=== PATIENT | male | born 1940 | race Caucasian/White ===

== ENCOUNTER 2017-09-21 23:14 | Observation (INO) ==
[2017-09-22 00:01] LABS: Basophils % 0.4 %; Eosinophils # 0.4 K/mcL (0.0-0.6); Eosinophils % 4.2 %; Hematocrit 38.9 % (37.5-50.1); Hemoglobin 12.8 g/dL (12.9-16.9); Immature Granulocytes % 1.3 % (0-4); Lymphocytes # 3.1 K/mcL (0.6-4.6); Lymphocytes % 35.2 %; Mean Corpuscular HGB Conc 32.9 g/dL (31.6-35.5); Mean Corpuscular Hemoglobin 26.9 pg (28.0-33.3); Mean Corpuscular Volume 81.7 fL (83.0-100.0); Mean Platelet Volume 11.3 fL (9.4-12.4); Monocytes # 0.8 K/mcL (0.0-1.3); Monocytes % 9.1 %; Neutrophils # 4.4 K/mcL (1.6-8.9); Platelet Count 226 K/mcL (140-400); Red Blood Count 4.76 M/mcL (4.19-5.50); Red Cell Distribution Width 13.4 % (11.5-14.5); Segmented Neutrophils % 49.8 %
[2017-09-22 00:23] LABS: Calcium 8.7 mg/dL (8.6-10.3); Potassium 3.9 mEq/L (3.5-5.1)
--- NOTE | 2017-09-22 01:22 | Emergency Department Note ---
Disposition Clinical Impression: Elevated serum creatinine, Pre-syncope Dyspnea Qualifiers: Dyspnea type: unspecified Qualified Code(s): R06.00 - Dyspnea, unspecified Disposition: Admitted As Inpatient Condition: Good General Adult HPI - General Chief complaint: ED Shortness of Breath/Dyspnea Stated complaint: NAJMA Time Seen by Provider: 09/22/17 00:42 Source: patient, family Limitations: no limitations Nursing Notes Reviewed: Yes Vital Signs Reviewed: Yes - History of Present Illness HPI Narrative: 77 y/o male w/ a hx of HTN, HLD, prostate cancer, colon cancer, and BPH presents with acute onset of pre-syncope with lightheadedness, dyspnea, diaphoresis, and nausea at 10pm. It lasted approximately 2 hours and has resolved. He denies chest painHe reports having an increase in frequency of these episodes over the last 2 weeks. He has not sought medical care before for these episodes. He has no cardiac hx. No hx of heart cath, CABG, or stents. No hx of DVT/PE. Not on blood thinners. Pain Scale: 0 Consistency: now resolved Improves with: nothing Worsens with: nothing Associated symptoms: Reports: denies other symptoms Treatments Prior to Arrival: none - Related Data Allergies Allergy/AdvReac Type Severity Reaction Status Date / Time No Known Allergies Allergy Verified 09/21/17 23:21 All systems ED: reviewed and negative except as stated. Constitutional: Denies: fever Eyes: Denies: vision change Cardiovascular: Denies: chest pain Respiratory: Reports: dyspnea. Denies: cough Gastrointestinal: Denies: abdominal pain, nausea, vomiting Integumentary: Denies: rash Past Medical History - Past Medical History Medical history: Reports: cancer, COPD, diabetes, hyperlipidemia, hypertension - Social History Smoking Status: Former smoker Smokeless Tobacco Status: No Alcohol use: Reports: none Drug use: Reports: none Physical Exam - General Limitations: no limitations General appearance: alert - Head Head exam: atraumatic - Eye Eye exam: Present: normal appearance, PERRL - ENT ENT exam: normal exam, normal oropharynx - Neck Neck exam: Present: normal inspection - Chest Chest inspection: Present: normal inspection - Respiratory Respiratory exam: Present: normal lung sounds bilaterally. Absent: respiratory distress - Cardiovascular Cardiovascular exam: Present: regular rate, normal rhythm - Abdominal Exam Abdominal exam: Present: soft, Non-Tender - Extremities Exam Extremities exam: Present: normal inspection - Neurological Exam Neurological exam: Present: alert, oriented X3 - Psychiatric Psychiatric exam: Present: normal affect, normal mood - Skin Skin exam: Present: warm, dry Course Course Narrative: Negative D-dimer. Creatinine is elevated, however unclear if this is new. He reports no difficulty with urination and no prior kidney issues. EKG is NSR w/ o ST deviation. Troponin is negative. Will admit for pre-syncope associated w / dyspnea and diaphoresis. Will need to rule out arrhythmia. Accepted by Partha. Vital Signs Temperature 97.9 F 09/21/17 23:21 Pulse Rate 71 09/21/17 23:21 Respiratory Rate 18 09/21/17 23:21 Blood Pressure 164/88 09/21/17 23:21 O2 Sat by Pulse Oximetry 97 09/21/17 23:21 Temperature 97.9 F 09/21/17 23:21 Pulse Rate 71 09/21/17 23:21 Respiratory Rate 18 09/22/17 04:10 Blood Pressure 151/91 09/22/17 04:10 O2 Sat by Pulse Oximetry 97 09/21/17 23:21 Oxygen Delivery Oxygen Delivery Room Air Medical Decision Making - Medical Records Medical records reviewed: Yes I reviewed the patient's medical records. - Lab Data Lab results reviewed: Yes I reviewed the patient's lab results. Result diagrams: 09/21/17 23:52 09/21/17 23:52 Lab Results 09/21/17 09/21/17 09/21/17 Range/Units 23:52 23:52 23:52 WBC 8.9 (4.3-11.1) K/mcL RBC 4.76 (4.19-5.50) M/mcL Hgb 12.8 L (12.9-16.9) g/dL Hct 38.9 (37.5-50.1) % MCV 81.7 L (83.0-100.0) fL MCH 26.9 L (28.0-33.3) pg MCHC 32.9 (31.6-35.5) g/dL RDW 13.4 (11.5-14.5) % Plt Count 226 (140-400) K/mcL MPV 11.3 (9.4-12.4) fL Immature Gran % 1.3 (0-4) % Seg Neutrophils % 49.8 % Lymphocytes % 35.2 % Monocytes % 9.1 % Eosinophils % 4.2 % Basophils % 0.4 % Neutrophils # 4.4 (1.6-8.9) K/mcL Lymphocytes # 3.1 (0.6-4.6) K/mcL Monocytes # 0.8 (0.0-1.3) K/mcL Eosinophils # 0.4 (0.0-0.6) K/mcL Basophils # 0.0 (0.0-0.2) K/mcL PT (9.4-12.1) Seconds INR APTT (26.0-36.0) Seconds D-Dimer (0-500) ng/mLFEU Sodium 133 L (136-145) mEq/L Potassium 3.9 (3.5-5.1) mEq/L Chloride 100 (98-107) mEq/L Carbon Dioxide 23 (23-29) mEq/L BUN 25 H (8-23) mg/dL Creatinine 1.88 H (0.70-1.30) mg/dL Est GFR ( Amer) 42 L (> 60) Est GFR (Non-Af Amer) 35 L (> 60) BUN/Creatinine Ratio 13 (6-26) Glucose 233 H (70-105) mg/dL Calculated Osmolality 288 (280-300) Calcium 8.7 (8.6-10.3) mg/dL Troponin I < 0.03 (< 0.04) ng/mL B-Natriuretic Peptide (Less than 100) pg/mL 09/21/17 09/22/17 09/22/17 Range/Units 23:52 01:31 01:31 WBC (4.3-11.1) K/mcL RBC (4.19-5.50) M/mcL Hgb (12.9-16.9) g/dL Hct (37.5-50.1) % MCV (83.0-100.0) fL MCH (28.0-33.3) pg MCHC (31.6-35.5) g/dL RDW (11.5-14.5) % Plt Count (140-400) K/mcL MPV (9.4-12.4) fL Immature Gran % (0-4) % Seg Neutrophils % % Lymphocytes % % Monocytes % % Eosinophils % % Basophils % % Neutrophils # (1.6-8.9) K/mcL Lymphocytes # (0.6-4.6) K/mcL Monocytes # (0.0-1.3) K/mcL Eosinophils # (0.0-0.6) K/mcL Basophils # (0.0-0.2) K/mcL PT 11.0 (9.4-12.1) Seconds INR 1.0 APTT 29.3 (26.0-36.0) Seconds D-Dimer 477 (0-500) ng/mLFEU Sodium (136-145) mEq/L Potassium (3.5-5.1) mEq/L Chloride (98-107) mEq/L Carbon Dioxide (23-29) mEq/L BUN (8-23) mg/dL Creatinine (0.70-1.30) mg/dL Est GFR ( Amer) (> 60) Est GFR (Non-Af Amer) (> 60) BUN/Creatinine Ratio (6-26) Glucose (70-105) mg/dL Calculated Osmolality (280-300) Calcium (8.6-10.3) mg/dL Troponin I (< 0.04) ng/mL B-Natriuretic Peptide 26 (Less than 100) pg/mL - Radiology Data Radiology results reviewed: Yes I reviewed the patient's radiology results. - EKG Data EKG #1 EKG attestation: Yes I reviewed and interpreted this EKG. EKG shows normal: sinus rhythm Rate: normal Rhythm: torsades When compared to previous EKG there are: previous EKG unavailable Interpretation: nonspecific ST-T wave changes Attestation Statement - Attestation Attestation: I, Lázaro Chawla, examined this patient and my medical decision-making was reviewed with the PEDIATRIC GENETICIST/PA/Advanced Practice Nurse/Resident Physician. I agree with the documented findings, disposition and treatment plan as described except to the extent set forth below. 77-year-old male presents emergency Department with concerns of increased shortness of breath. Patient states symptoms started within the past 12 hours prior to arrival. Patient states he felt generalized malaise throughout the day however he developed the shortness of breath within the past few hours. Patient denies near syncopal episode. Denies chest pain. Patient has a history of cardiac disease. D-dimer negative. Chest x-ray does not show evidence of acute infiltrate. Patient be admitted to hospital for further care and evaluation. Initial EKG showed normal sinus rhythm with a rate of 72 without evidence of STEMI.
[2017-09-22 01:49] LABS: Activated Partial Thrombo Time 29.3 Seconds (26.0-36.0)
[2017-09-22] MEDS ORDERED: Ondansetron ODT 4 MG TAB.RAPDIS SL PRN (04:25)
[2017-09-22] MEDS ORDERED: Naloxone 0.4 MG/ML INJ IVP PRN (04:25)
[2017-09-22] MEDS ORDERED: *HR* Dextrose 50 % in Water (Syg) 50 ML SYRINGE IVP PRN (04:52)
[2017-09-22] MEDS ORDERED: Dextrose Gel 15 GM/37.5 ML TUBE PO PRN ×2 (04:52)
[2017-09-22] MEDS ORDERED: D5% in Water 1,000 ML IVC PRN (04:52)
--- NOTE | 2017-09-22 04:53 | Internal Med History&Physical ---
<Larry Valdes - Last Filed: 09/22/17 04:45> Date of Encounter: 09/22/17 Time of Encounter: 04:00 Assessment and Plan (1) Pre-syncope Current visit: Yes Status: Acute Ordered echocardiogram to evaluate for aortic stenosis Ordered b/l carotid duplex to evaluate for carotid stenosis Ordered orthostatics EKG pending (2) HTN (hypertension) Current visit: Yes Status: Acute Elevated at 164/88 Qualifiers: Hypertension type: essential hypertension Qualified Code(s): I10 - Essential (primary) hypertension (3) HLD (hyperlipidemia) Current visit: Yes Status: Acute Unknown control Ordered lipid cascade Qualifiers: Hyperlipidemia type: unspecified Qualified Code(s): E78.5 - Hyperlipidemia , unspecified (4) Diabetes mellitus, type II Current visit: Yes Status: Acute Unknown control Will check HgbA1C Qualifiers: Diabetes mellitus complication status: with unspecified complications Diabetes mellitus ad terminal makeup operator insulin use: unspecified ad terminal makeup operator insulin use status Qualified Code(s): E11.8 - Type 2 diabetes mellitus with unspecified complications (5) Elevated serum creatinine Current visit: Yes Status: Acute Unknown baseline Administering IVF @125 ml/hr Will monitor (6) DVT prophylaxis Current visit: Yes Status: Acute heparin subq q12h Internal Medicine - H&P: HPI Chief complaint: pre-syncope Admitted From: Home Plans for Post Hospital Care: Home History of present illness: Mr. Huddleston is a 77 year old male who presented from home following a 2 hour episode of lightheadedness, dyspnea, nausea, a feeling of beng overheated, and cough. He was laying in bed when it started. This is the worst episode he has experienced, but the first episode occurred as long as 2 months ago. He admits to occasional lower extremity edema without apparent relation to his symptoms. He denies CP, vomiting. Past Med Surg Social Fam HX - Past Medical History Medical history: cancer, COPD, diabetes, hyperlipidemia, hypertension - Social History Smoking Status: Former smoker Smokeless Tobacco Status: No Alcohol use: none Drug use: none Internal Medicine - H&P: Meds 3 Allergy/AdvReac Type Severity Reaction Status Date / Time No Known Allergies Allergy Verified 09/21/17 23:21 All Systems PM: A 10-system review of systems was performed and is negative for pertinent findings except as documented above in the HPI. Review of systems: as per HPI - Constitutional Vitals: Temp Pulse Resp BP Pulse Ox 97.9 F 71 18 151/91 97 09/21/17 23:21 09/21/17 23:21 09/22/17 04:10 09/22/17 04:10 09/21/17 23:21 General appearance: Present: cooperative, A&O X 3, pleasant, answers questions appropriately - Head Head exam: Present: atraumatic, normal inspection, normocephalic - ENT ENT exam: Present: mucous membranes moist - Neck Neck exam general surgery: Present: trachea midline - Cardiovascular Cardiovascular exam: Present: RRR, +S1, +S2. Absent: systolic murmur Additional comments: No carotid bruits appreciated - GI/Abdominal GI/Abdominal exam: Present: soft, no peritoneal signs. Absent: tenderness - Extremities Exam Extremities exam: Absent: pedal edema - Psychiatric Psychiatric exam: Present: normal affect, normal mood. Absent: agitated, anxious - Skin Skin exam: Present: dry, warm Internal Med - H&P Results - Labs CBC & Chem 7: 09/21/17 23:52 09/21/17 23:52 <Lorna Rain - Last Filed: 09/22/17 05:20> Date of Encounter: 09/22/17 Time of Encounter: 04:45 Internal Medicine - H&P: [facility] History of present illness: Mr. Huddleston is a 77 year old male All Systems PM: A 10-system review of systems was performed and is negative for pertinent findings except as documented above in the HPI. - Constitutional Vitals: Temp Pulse Resp BP Pulse Ox 97.9 F 71 18 151/91 97 09/21/17 23:21 09/21/17 23:21 09/22/17 04:10 09/22/17 04:10 09/21/17 23:21 Internal Med - H&P Results - Labs CBC & Chem 7: 09/21/17 23:52 09/21/17 23:52 - Attending Attestation I examined this patient and my medical decision-making was reviewed with the Resident Physician, Larry Valdes. I agree with the documented findings, disposition and treatment plan as described except to the extent set forth below. 77-year-old male patient with history of essential hypertension, diabetes mellitus type 2 presented to the ER with complaints of dizziness and lightheadedness. This occurred when he was bending down to tie a leash on his dog. His symptoms continued for over for the next couple of hours and he came to the ER as a result. Patient says he does have similar kinds of episodes that last for a brief period when his blood sugars are low but he had checked his blood sugars at home and his blood sugar was in the 180s. He denies any focal weakness or numbness. No loss of consciousness. No chest pain or palpitations. Patient has been having increased cough over the past few days. No sputum production. No current chest pain. He does report occasional intermittent left and right-sided chest wall pain. No fever or chills reported. On examination, patient is awake and alert. In no acute distress. Heart sounds are normal to examination. Breath sounds are also normal. Mild pedal edema present bilaterally. Lab work shows elevated creatinine and blood sugars. Presyncope: Uncertain etiology. Check orthostatics. Place on telemetry. 2-D echocardiogram and carotid Dopplers. Diabetes mellitus type 2: Check A1c. Before meals at bedtime blood sugars. Place patient on diabetic diet. Essential hypertension: Monitor blood pressure. Resume home medications as tolerated. Cough: We will check for influenza with respiratory infection panel. Acute kidney injury: Unknown baseline. Will gently hydrate. Recheck renal function.
[2017-09-22] MEDS: 0.9 % Sodium Chloride 1,000 ML IVC SCH ×2 (05:30→17:18)
[2017-09-22 05:32] LABS: Hemoglobin A1C 7.4 %
[2017-09-22 06:01] LABS: Calcium 9.2 mg/dL (8.6-10.3); Chol/HDL Ratio 4.8 (0-4.9); Potassium 4.1 mEq/L (3.5-5.1)
[2017-09-22] MEDS: *HR* Heparin 5,000 UNIT/ML VIAL SQ SCH ×2 (08:01→17:20)
[2017-09-22] MEDS: Insulin LISPRO 300 UNITS/3 ML VIAL SQ SCH ×3 (08:02→17:20)
--- NOTE | 2017-09-22 08:17 | Electrocardiograph Report ---
[place] [id number] Test Date: 2017-09-21 Pat Name: Tavares Huddleston Department: 102 Room: 2NE28 Gender: M [employer]ine [employer] Field Specialist: Ekp : [id number] Requested By: Lázaro Chawla Order Number: [id number] Reading MD: Elizabeth Rodrigues Measurements Intervals [place] Rate: 72 P: 39 [place]: 204 QRS: -24 QRSD: 96 T: 5 QT: 394 QTc: 418 Interpretive Statements SINUS RHYTHM BORDERLINE LEFT AXIS DEVIATION [QRS AXIS < -20] MODERATE VOLTAGE CRITERIA FOR LVH, CONSIDER NORMAL VARIANT [MEETS CRITERIA IN ONE OF: R(aVL), S(V1), R(V5), R(V5/V6)+S(V1)] Electronically Signed On 09-22-2017 8:15:48 EST by Elizabeth Rodrigues
[2017-09-22 10:21] LABS: Adenovirus Not Detected (Not Detect); Bordetella Pertussis Not Detected (Not Detect); Chlamydophila pneumoniae Not Detected (Not Detect); Coronavirus 229E Not Detected (Not Detect); Coronavirus HKU1 Not Detected (Not Detect); Coronavirus NL63 Not Detected (Not Detect); Coronavirus OC43 Not Detected (Not Detect); Human Metapneumovirus Not Detected (Not Detect); Human Rhinovirus/Enterovirus Not Detected (Not Detect); Influenza A Subtype 2009 H1 Not Detected (Not Detect); Influenza A Untypeable Not Detected (Not Detect); Influenza B Not Detected (Not Detect); Mycoplasma pneumoniae Not Detected (Not Detect); Parainfluenza Virus 1 Not Detected (Not Detect); Parainfluenza Virus 2 Not Detected (Not Detect); Parainfluenza Virus 3 Not Detected (Not Detect); Parainfluenza Virus 4 Not Detected (Not Detect); Respiratory Syncytial Virus Not Detected (Not Detect)
--- NOTE | 2017-09-22 17:26 | Event Note ---
<GermainesupaChung mendez - Last Filed: 09/22/17 17:18> Date of Encounter: 09/22/17 Time of Encounter: 17:18 Patient seen and examined this morning at bedside. He states that he experienced dizziness and nausea after bending down to put a leash on his dog yesterday. He reports no further symptoms. He has experienced this in the past. Denies any current needs at this time however is getting frustrated at the time it is taking to run tests. Physical exam Gen.: Vitals noted. No acute distress. AAOx3 HEENT: PERRL/EOMI, oropharynx clear, Normocephalic, atraumatic, MMM Cardiac: RRR, no murmur, +S1/S2 Pulmonary: CTA bilaterally, no wheezes, rales or rhonchi, equal chest expansion Abdomen: soft, nontender, BS noted, no guarding Extremities: no BLE edema, nontender calf, no cyanosis or clubbing Neuro: A&Ox3, moves all extremities, no focal deficits Psych: Appropriate mood and behavior A/P 1. Pre syncope - Likely related to dehydration and vasovagal episode. - Work up thus far has been negative including labs, EKG, - Orthostatics, echo, carotid US pending - Will likely stay until tomorrow for testing to come back. 2. HTN - Most recent BP 139/107 - Meds reconciled, continue home meds - Hydralazine PRN 3. DM - Most recent BS of 117 - SSI medium - A1c of 7.4% 4. Elevated serum Cr. - Unknown baseline - Getting IVF at 125/hr 5. DVT prophylaxis - heparin sq q 12hr <Sonu Lilly - Last Filed: 09/22/17 18:17> Date of Encounter: 09/22/17 Mr Huddleston was placed in observation earlier today for syncope. Work up in progress. Agree with above assessment and plan.
[2017-09-22] MEDS ORDERED: Furosemide 40 MG TABLET PO SCH (17:30)
[2017-09-22 19:15] VITALS: BP 177/87
[2017-09-22] MEDS ORDERED: Insulin LISPRO 300 UNITS/3 ML VIAL SQ SCH (21:00)
[2017-09-22] MEDS ORDERED: Gabapentin 300 MG CAPSULE PO SCH (21:00)
--- NOTE | 2017-09-22 23:04 | Event Note ---
Date of Encounter: 09/22/17 Time of Encounter: 22:00 I was called to the bedside by the nurse because this patient was apparently tachycardic and hypertensive. The patient was concerned that he was having a reaction to a shot of insulin that he just received feeling hot and agitated. This apparently happened earlier in the day when he received an insulin shot as well. Blood glucose was taken immediately and the glucose was demonstrated to be in the 190s. I did notice while there that the patient had a heart rate in the 120s and a blood pressure of about 177/95. I spoke to the patient about possible therapeutic options for this, however he became increasingly agitated and said that he would like to leave. Ensure that the patient was alert and oriented 3 and competent to make that decision. I explained to the patient the risks of leaving including injury, loss of consciousness or . I also explained to the patient that by saying I would be able to treat his blood pressure, tachycardia, anxiety and give him something to help him sleep a little bit better than he did the previous night. 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 Because the patient was oriented and competent to make this decision and I prepared AGAINST MEDICAL ADVICE paperwork which the patient signed and did leave. I did instruct the patient to return any time if he felt that he was experiencing chest pains, palpitations, or just felt that maybe he required treatment. Patient expressed understanding. Nurse and GIRLS SWIMMING COACH were present for the entirety of conversation, as were two family members of the patient who attempted to convince him to stay unsuccessfully.
--- NOTE | 2017-09-23 08:13 | Discharge Summary ---
<Chung Dyson - Last Filed: 09/23/17 08:13> Date of Encounter: 09/23/17 Time of Encounter: 08:13 - Discharge Medications Home Medications: Enalapril Maleate [Vasotec] 20 mg PO DAILY 09/22/17 [History] Finasteride [Proscar] 5 mg PO DAILY 09/22/17 [History] Furosemide [Lasix] 40 mg PO BID 09/22/17 [History] Gabapentin [Neurontin] 300 mg PO BID 09/22/17 [History] Glimepiride [Amaryl] 2 mg PO DAILY 09/22/17 [History] Insulin DETEMIR [Levemir Flextouch] 60 units SQ BID 09/22/17 [History] Meclizine HCl [Verticalm] 25 mg PO DAILY 09/22/17 [History] Omeprazole [PriLOSEC] 20 mg PO DAILY 09/22/17 [History] Polyethylene Glycol 3350 [MiraLAX] 17 gm PO DAILY 09/22/17 [History] Simvastatin [Zocor] 20 mg PO HS 09/22/17 [History] SitaGLIPtin [Januvia] 100 mg PO DAILY 09/22/17 [History] Tamsulosin [Flomax] 0.4 mg PO DAILY 09/22/17 [History] metFORMIN [Glucophage] 500 mg PO BIDWM 09/22/17 [History] Allergies/Adverse Reactions: 3 Allergy/AdvReac Type Severity Reaction Status Date / Time No Known Allergies Allergy Verified 09/21/17 23:21 Procedures/tests Complete & Pending: Procedures Performed prior 72 hours Category Date Time Status EV carotid duplex imaging BI Routine Y 09/22/17 04:25 Completed EV echocardiogram Routine Y 09/22/17 04:23 Completed Date of admission: 09/22/17 03:29 Primary care physician: Sulaiman Wood - Patient Status Disposition: Left Against Medical Advice Condition: Good - Discharge Instructions Instructions: Chronic Hypertension (DC) Follow Up With: Sulaiman Wood DO [Primary Care Provider] - Hospital course: Mr. Huddleston is a 77 year old male - Time Spent with Patient Total time spent providing and/or coordinating discharge services: - Constitutional Vitals: Temp Pulse Resp BP Pulse Ox 97.6 F 98 19 177/87 96 09/22/17 19:07 09/22/17 19:07 09/22/17 19:07 09/22/17 19:07 09/22/17 19:07 General appearance: Present: cooperative, A&O X 3, pleasant, answers questions appropriately <Sonu Lilly - Last Filed: 09/23/17 14:31> Date of Encounter: 09/23/17 Procedures/tests Complete & Pending: Procedures Performed prior 72 hours Category Date Time Status EV carotid duplex imaging BI Routine Y 09/22/17 04:25 Completed EV echocardiogram Routine Y 09/22/17 04:23 Completed Date of admission: 09/22/17 03:29 Primary care physician: Sulaiman Wood [facility] course: Mr. Huddleston is a 77 year old male - Time Spent with Patient Total time spent providing and/or coordinating discharge services: - Constitutional Vitals: Temp Pulse Resp BP Pulse Ox 97.6 F 98 19 177/87 96 09/22/17 19:07 09/22/17 19:07 09/22/17 19:07 09/22/17 19:07 09/22/17 19:07 - Attending Attestation I examined this patient and my medical decision-making was reviewed with the Resident Physician on 09/22/17. I agree with the documented findings, disposition and treatment plan as described except to the extent set forth below. Mr Huddleston was in observation for syncope. He left AMA last evening.
[2017-09-23] MEDS ORDERED: Finasteride 5 MG TABLET PO SCH (09:00)
[2017-09-23] MEDS ORDERED: Lisinopril 20 MG TABLET PO SCH (09:00)
== END 2017-09-22 21:53 | disposition left against medical advice (07) ==
LOC: 2NENU 23:14 → EMEROO 23:14 → 2NENU 09-22 04:16
PROVIDERS: ADMIT Internal Medicine; ATTEND Internal Medicine

== ENCOUNTER 2020-12-26 15:19 | Observation (INO) ==
[2020-12-26] MEDS ORDERED: Td (TENIVAC) Vaccine 0.5 ML VIAL IM ONE (15:28)
[2020-12-26] MEDS ORDERED: Tdap (Boostrix) Vaccine 0.5 ML SYRINGE IM ONE (15:38)
[2020-12-26] MEDS ORDERED: *HR* Propofol 200 MG/20 ML VIAL IVP ONE ×2 (16:03→20:26)
[2020-12-26] MEDS ORDERED: 0.9 % Sodium Chloride 1,000 ML ONE (16:18)
[2020-12-26] MEDS ORDERED: Morphine Sulfate 2 MG/ML SYRINGE IVP ONE ×2 (16:46→18:12)
[2020-12-26 16:49] LABS: Basophils % 0.2 %; Eosinophils # 0.1 K/mcL (0.0-0.6); Eosinophils % 1.2 %; Hematocrit 34.2 % (37.5-50.1); Hemoglobin 11.1 g/dL (12.9-16.9); Immature Granulocytes % 1.1 % (0-4); Lymphocytes # 1.7 K/mcL (0.6-4.6); Lymphocytes % 15.2 %; Mean Corpuscular HGB Conc 32.5 g/dL (31.6-35.5); Mean Corpuscular Volume 83.2 fL (83.0-100.0); Mean Platelet Volume 11.3 fL (9.4-12.4); Monocytes % 8.9 %; Neutrophils # 8.4 K/mcL (1.6-8.9); Platelet Count 235 K/mcL (140-400); Red Blood Count 4.11 M/mcL (4.19-5.50); Red Cell Distribution Width 14.3 % (11.5-14.5); Segmented Neutrophils % 73.4 %; White Blood Count 11.4 K/mcL (4.3-11.1)
[2020-12-26 16:59] LABS: INR 1.1; Prothrombin Time 13.1 Seconds (9.4-12.1)
[2020-12-26 17:06] LABS: Calcium 8.4 mg/dL (8.6-10.3); Potassium 4.6 mEq/L (3.5-5.1)
[2020-12-26] MEDS ORDERED: Melatonin 3 MG TABLET PO PRN (17:22)
[2020-12-26] MEDS ORDERED: Ondansetron 4 MG/2 ML VIAL IVP PRN (17:22)
[2020-12-26] MEDS ORDERED: Naloxone 0.4 MG/ML INJ IVP PRN (17:22)
[2020-12-26] MEDS ORDERED: *HR* Dextrose 50 % in Water (Vial) 50 ML VIAL IVP PRN (17:24)
[2020-12-26] MEDS ORDERED: *HR* HYDROmorphone 2 MG/ML SYRINGE IVP PRN (17:24)
[2020-12-26] MEDS ORDERED: Dextrose Gel 15 GM/37.5 ML TUBE PO PRN ×2 (17:24)
[2020-12-26] MEDS ORDERED: D5% in Water 1,000 ML IVC PRN (17:24)
[2020-12-26] MEDS ORDERED: Ringers Solution, Lactated 1,000 ML IVC SCH (17:30)
[2020-12-26] MEDS ORDERED: Ipratropium/Albuterol Neb 3 ML IH PRN (17:35)
[2020-12-26 19:02] LABS: Adenovirus Not Detected (Not Detect); Bordetella Pertussis Not Detected (Not Detect); Chlamydophila pneumoniae Not Detected (Not Detect); Coronavirus 229E Not Detected (Not Detect); Coronavirus HKU1 Not Detected (Not Detect); Coronavirus NL63 Not Detected (Not Detect); Coronavirus OC43 Not Detected (Not Detect); Human Metapneumovirus Not Detected (Not Detect); Human Rhinovirus/Enterovirus Not Detected (Not Detect); Influenza A Subtype 2009 H1 Not Detected (Not Detect); Influenza B Not Detected (Not Detect); Mycoplasma pneumoniae Not Detected (Not Detect); Parainfluenza Virus 1 Not Detected (Not Detect); Parainfluenza Virus 2 Not Detected (Not Detect); Parainfluenza Virus 3 Not Detected (Not Detect); Parainfluenza Virus 4 Not Detected (Not Detect); Respiratory Syncytial Virus Not Detected (Not Detect); SARS-CoV-2 Not Detected (Not Detect)
[2020-12-26] MEDS ORDERED: *HR* FentaNYL (PF) 100 MCG/2 ML VIAL ONE (20:26)
[2020-12-26] MEDS ORDERED: Lidocaine -MPF 2% 2 ML VIAL ONE (20:26)
[2020-12-26] MEDS ORDERED: Lidocaine 1% 20 ML MDV ONE (20:39)
[2020-12-26 20:42] LABS: Estimated Average Glucose 169 mg/dl; Hemoglobin A1C 7.5 %
[2020-12-26] MEDS ORDERED: *HR* HYDROmorphone PF 0.5 MG/0.5 ML SYRINGE IVP PRN (20:56)
[2020-12-26] MEDS ORDERED: *HR* OxyCODONE Immed Rel 5 MG TABLET PO PRN (20:56)
[2020-12-26] MEDS ORDERED: Gabapentin 300 MG CAPSULE PO SCH (21:00)
[2020-12-26] MEDS ORDERED: Furosemide 40 MG TABLET PO SCH (21:00)
[2020-12-26] MEDS ORDERED: Insulin DETEMIR 100 UNIT/ML X5UNITS SUBQ SCH (21:00)
[2020-12-26] MEDS ORDERED: *HR* Rocuronium Bromide 50 MG/5 ML VIAL ONE (21:07)
[2020-12-26] MEDS ORDERED: *HR* Succinylcholine 200 MG/10 ML VIAL IVP ONE (21:07)
[2020-12-26] MEDS ORDERED: *HR* HYDROMORPHONE 2 MG/ML VIAL ONE (21:30)
[2020-12-26] MEDS ORDERED: Ondansetron 4 MG/2 ML VIAL ONE (21:41)
[2020-12-26] MEDS ORDERED: EPHEDrine 50 MG/ML VIAL ONE (22:13)
[2020-12-26] MEDS ORDERED: *HR* Vasopressin 20 UNIT/ML VIAL ONE (22:21)
[2020-12-27] MEDS ORDERED: Ringers Solution, Lactated 1,000 ML IVC SCH (00:07)
[2020-12-27] MEDS ORDERED: Ondansetron 4 MG/2 ML VIAL IVP PRN (00:07)
[2020-12-27] MEDS ORDERED: *HR* HYDROmorphone 2 MG/ML SYRINGE IVP PRN (00:07)
[2020-12-27] MEDS ORDERED: Ipratropium/Albuterol Neb 3 ML IH PRN (00:07)
[2020-12-27] MEDS ORDERED: Naloxone 0.4 MG/ML INJ IVP PRN (00:07)
[2020-12-27] MEDS ORDERED: Melatonin 3 MG TABLET PO PRN (00:07)
[2020-12-27] MEDS ORDERED: *HR* Dextrose 50 % in Water (Vial) 50 ML VIAL IVP PRN (00:07)
[2020-12-27] MEDS ORDERED: Dextrose Gel 15 GM/37.5 ML TUBE PO PRN ×2 (00:07)
[2020-12-27] MEDS ORDERED: D5% in Water 1,000 ML IVC PRN (00:07)
[2020-12-27 01:26] LABS: Hematocrit 32.9 % (37.5-50.1); Hemoglobin 10.7 g/dL (12.9-16.9); Mean Corpuscular HGB Conc 32.5 g/dL (31.6-35.5); Mean Corpuscular Hemoglobin 27.8 pg (28.0-33.3); Mean Corpuscular Volume 85.5 fL (83.0-100.0); Mean Platelet Volume 11.2 fL (9.4-12.4); Platelet Count 190 K/mcL (140-400); Red Blood Count 3.85 M/mcL (4.19-5.50); Red Cell Distribution Width 14.3 % (11.5-14.5)
[2020-12-27 01:47] LABS: Calcium 8.2 mg/dL (8.6-10.3); Magnesium 2.2 mg/dL (1.6-2.6); Phosphorous 3.1 mg/dL (2.7-4.5); Potassium 4.4 mEq/L (3.5-5.1)
[2020-12-27 01:52] LABS: % Iron Saturation 13 % (20-55); Iron 48 mcg/dL (65-175); Transferrin 257 mg/dL (203-362)
[2020-12-27 02:07] LABS: Ferritin 23 ng/mL (20-250)
[2020-12-27 02:12] LABS: Folate 8.1 ng/mL (3.0-16.0)
[2020-12-27 07:05] VITALS: BP 128/74
[2020-12-27] MEDS ORDERED: Insulin LISPRO 300 UNITS/3 ML VIAL SUBQ SCH (07:30)
[2020-12-27] MEDS: Insulin LISPRO 300 UNITS/3 ML VIAL SUBQ SCH ×2 (07:42→11:51)
[2020-12-27] MEDS ORDERED: Furosemide 40 MG TABLET PO SCH (08:00)
[2020-12-27] MEDS: Calcium Gluconate 1gm/50mL 1 GM/50 ML BAG IVPB SCH ×2 (08:38→11:12)
[2020-12-27] MEDS ORDERED: atenoloL 50 MG TABLET PO SCH ×2 (09:00)
[2020-12-27] MEDS ORDERED: Sennosides 8.6 MG TABLET PO SCH ×2 (09:00)
[2020-12-27] MEDS ORDERED: Insulin DETEMIR 100 UNIT/ML X5UNITS SUBQ SCH ×2 (09:00→21:00)
[2020-12-27] MEDS ORDERED: Cholecalciferol (D-3) 1,000 UNIT (25MCG) TABLET PO SCH (09:00)
[2020-12-27] MEDS ORDERED: Aspirin Enteric Coated 81 MG Tablet PO SCH ×2 (09:00)
[2020-12-27] MEDS ORDERED: Cyanocobalamin (B-12) 1,000 MCG TABLET PO SCH (09:00)
[2020-12-27] MEDS ORDERED: Gabapentin 300 MG CAPSULE PO SCH (09:00)
[2020-12-27] MEDS ORDERED: PSYLLIUM HUSK 0.52 GM PO SCH (09:00)
[2020-12-27] MEDS ORDERED: Finasteride 5 MG TABLET PO SCH ×2 (09:00)
[2020-12-27] MEDS ORDERED: Iron Sucrose Complex 400 MG in 0.9 % Sodium Chloride 250 ML IVPB ONE (10:00)
[2020-12-27] MEDS ORDERED: *HR* Heparin 5,000 UNIT/ML VIAL SQ SCH (18:00)
== END 2020-12-27 12:50 | disposition home health service (06) ==
LOC: SUATTDRO → 3NENU 15:19 → EMEROOARM 15:19 → 3NENU 19:37
PROVIDERS: ADMIT Internal Medicine; ATTEND Internal Medicine

== ENCOUNTER 2021-04-08 16:37 | Inpatient (IN) ==
[2021-04-08] MEDS ORDERED: Ketorolac 15 MG/ML VIAL IM ONE (17:30)
[2021-04-08] MEDS ORDERED: Gadolinium Contrast Agent (WT Based) IV PRN (18:09)
[2021-04-08] MEDS ORDERED: Clindamycin 600 MG/50 ML 600 MG/50 ML IV.SOLN IVPB STA (18:13)
[2021-04-08] MEDS ORDERED: Piperacillin/Tazobactam 3.375 GM in 0.9 % Sodium Chloride Mini Bag 100 ML IVPB ONE (18:15)
[2021-04-08] MEDS ORDERED: Vancomycin 1,750 MG/517.5 ML IV.SOLN IVPB ONE (18:20)
[2021-04-08] MEDS ORDERED: GADOBUTROL 30 MMOL/30 ML VIAL IVP ONE (18:25)
[2021-04-08 18:40] LABS: Hematocrit 35.4 % (37.5-50.1); Red Cell Distribution Width 13.5 % (11.5-14.5)
[2021-04-08 18:41] LABS: Hemoglobin 11.9 g/dL (12.9-16.9); Mean Corpuscular HGB Conc 33.6 g/dL (31.6-35.5); Mean Corpuscular Hemoglobin 27.9 pg (28.0-33.3); Mean Corpuscular Volume 82.9 fL (83.0-100.0); Platelet Count 192 K/mcL (140-400); Red Blood Count 4.27 M/mcL (4.19-5.50)
[2021-04-08 18:43] LABS: White Blood Count 32.1 K/mcL (4.3-11.1)
[2021-04-08 18:48] LABS: INR 1.2; Prothrombin Time 13.5 Seconds (9.4-12.1)
[2021-04-08 18:48] LABS: POC Creatinine Result 1.65 mg/dL (0.70-1.30)
[2021-04-08 18:50] LABS: Activated Partial Thrombo Time 25.8 Seconds (26.0-36.0)
[2021-04-08 18:58] LABS: Alanine Aminotransferase 17 Units/L (7-52); Albumin 3.7 g/dL (3.5-5.7); Albumin/Globulin Ratio 1.3 (1.1-2.2); Alkaline Phosphatase 86 Units/L (34-104); Aspartate Amino Transferase 16 Units/L (13-39); BUN/Creatinine Ratio 12 (6-26); Bilirubin,Total 1.2 mg/dL (0.3-1.0); Blood Urea Nitrogen 18 mg/dL (8-23); C-Reactive Protein 57 mg/L (Less than 10); Calcium 8.7 mg/dL (8.6-10.3); Carbon Dioxide 22 mEq/L (23-29); Chloride 97 mEq/L (98-107); Creatine Kinase 109 Units/L (30-223); Globulin 2.8 g/dL (2.4-3.5); Glucose 240 mg/dL (70-105); Osmolality,Calculated 278 (280-300); Potassium 4.7 mEq/L (3.5-5.1); Sodium 129 mEq/L (136-145); Total Protein 6.5 g/dL (6.4-8.9); eGFR For African Americans 56 (> 60); eGFR For Non-African Americans 46 (> 60)
[2021-04-08 19:07] LABS: Anisocytosis 1+ (Not Present); Lymphocytes # 0.6 K/mcL (0.6-4.6); Neutrophils # 30.5 K/mcL (1.6-8.9); Platelet Estimate Normal (Normal)
[2021-04-08] MEDS ORDERED: 0.9 % Sodium Chloride 1,000 ML IVC ONE ×2 (20:07→20:12)
[2021-04-08] MEDS ORDERED: *HR* FentaNYL (PF) 100 MCG/2 ML VIAL IVP ONE (20:09)
[2021-04-08] MEDS ORDERED: Naloxone 0.4 MG/ML INJ IVP PRN (21:57)
[2021-04-08] MEDS ORDERED: Acetaminophen 325 MG TABLET PO PRN (21:57)
[2021-04-08] MEDS ORDERED: *HR* Dextrose 50 % in Water (Vial) 50 ML VIAL IVP PRN (22:03)
[2021-04-08] MEDS ORDERED: Dextrose Gel 15 GM/37.5 ML TUBE PO PRN ×2 (22:03)
[2021-04-08] MEDS ORDERED: D5% in Water 1,000 ML IVC PRN (22:03)
[2021-04-08] MEDS: Levalbuterol Neb 1.25 MG/3 ML IH SCH (22:04)
[2021-04-08] MEDS ORDERED: *HR* HYDROmorphone 2 MG TABLET PO ONE (22:06)
[2021-04-08] MEDS ORDERED: tiZANidine 4 MG TABLET PO PRN (22:06)
[2021-04-08] MEDS ORDERED: *HR* Metoprolol 5 MG/5 ML VIAL IVP ONE (22:31)
[2021-04-08 22:51] LABS: Troponin I < 0.03 ng/mL (< 0.04)
[2021-04-08 23:34] LABS: Adenovirus Not Detected (Not Detect); Coronavirus 229E Not Detected (Not Detect); Coronavirus HKU1 Not Detected (Not Detect); Coronavirus NL63 Not Detected (Not Detect); Coronavirus OC43 Not Detected (Not Detect); Human Metapneumovirus Not Detected (Not Detect); Human Rhinovirus/Enterovirus Not Detected (Not Detect); Influenza A Subtype 2009 H1 Not Detected (Not Detect); Influenza B Not Detected (Not Detect); Parainfluenza Virus 1 Not Detected (Not Detect); Parainfluenza Virus 2 Not Detected (Not Detect); Parainfluenza Virus 3 Not Detected (Not Detect); Parainfluenza Virus 4 Not Detected (Not Detect); Respiratory Syncytial Virus Not Detected (Not Detect); SARS-CoV-2 Not Detected (Not Detect)
[2021-04-08 23:35] LABS: Bordetella Pertussis Not Detected (Not Detect); Chlamydophila pneumoniae Not Detected (Not Detect); Mycoplasma pneumoniae Not Detected (Not Detect)
[2021-04-09 00:44] LABS: Hematocrit 33.4 % (37.5-50.1); Hemoglobin 11.1 g/dL (12.9-16.9); Mean Corpuscular HGB Conc 33.2 g/dL (31.6-35.5); Mean Corpuscular Hemoglobin 27.7 pg (28.0-33.3); Mean Corpuscular Volume 83.3 fL (83.0-100.0); Mean Platelet Volume 11.3 fL (9.4-12.4); Platelet Count 169 K/mcL (140-400); Red Blood Count 4.01 M/mcL (4.19-5.50); Red Cell Distribution Width 13.7 % (11.5-14.5); White Blood Count 27.9 K/mcL (4.3-11.1)
[2021-04-09 00:49] LABS: INR 1.2
[2021-04-09 00:52] LABS: Calcium 8.1 mg/dL (8.6-10.3); Chol/HDL Ratio 3.7 (0-4.9); Magnesium 1.4 mg/dL (1.6-2.6); Potassium 5.1 mEq/L (3.5-5.1)
[2021-04-09 00:53] LABS: Iron 13 mcg/dL (65-175)
[2021-04-09 01:09] LABS: Estimated Average Glucose 189 mg/dl; Hemoglobin A1C 8.2 %
[2021-04-09 01:12] LABS: Ferritin 60 ng/mL (20-250)
[2021-04-09 01:18] LABS: Folate 7.3 ng/mL (3.0-16.0)
[2021-04-09] MEDS: Insulin LISPRO 300 UNITS/3 ML VIAL SUBQ SCH ×4 (01:26→20:49)
[2021-04-09 03:04] LABS: % Iron Saturation 4 % (20-55); Transferrin 231 mg/dL (203-362)
[2021-04-09] MEDS ORDERED: Magnesium Sulfate 1 GM/102 ML PIGGYBACK IVPB ONE (04:13)
[2021-04-09] MEDS ORDERED: Calcium Gluconate 1gm/50mL 1 GM/50 ML BAG IVPB ONE (04:14)
[2021-04-09] MEDS ORDERED: 0.9 % Sodium Chloride 1,000 ML IVC ONE (04:14)
[2021-04-09] MEDS: Levalbuterol Neb 1.25 MG/3 ML IH SCH ×4 (04:30→21:09)
[2021-04-09] MEDS: Piperacillin/Tazobactam 3.375 GM in 0.9 % Sodium Chloride Mini Bag 100 ML IVPB SCH ×3 (04:50→20:47)
[2021-04-09 07:11] LABS: Acinetobacter baumannii by PCR Not Detected (Not Detect); Candida albicans by PCR Not Detected (Not Detect); Candida glabrata by PCR Not Detected (Not Detect); Candida krusei by PCR Not Detected (Not Detect); Candida parapsilosis by PCR Not Detected (Not Detect); Candida tropicalis by PCR Not Detected (Not Detect); Enterobacter cloacae Cmplx PCR Not Detected (Not Detect); Enterobacteriaceae by PCR Not Detected (Not Detect); Enterococcus by PCR Not Detected (Not Detect); Escherichia coli by PCR Not Detected (Not Detect); Klebsiella oxytoca by PCR Not Detected (Not Detect); Klebsiella pneumoniae by PCR Not Detected (Not Detect); Proteus by PCR Not Detected (Not Detect); Pseudomonas aeruginosa by PCR Not Detected (Not Detect); Serratia marcescens by PCR Not Detected (Not Detect); Staphylococcus aureus by PCR Not Detected (Not Detect); Staphylococcus by PCR Not Detected (Not Detect); Streptococcus agalactiae(B)PCR Not Detected (Not Detect); Streptococcus by PCR Not Detected (Not Detect); Streptococcus pneumoniae PCR Not Detected (Not Detect); Streptococcus pyogenes (A) PCR Not Detected (Not Detect)
[2021-04-09] MEDS ORDERED: Vancomycin 1,000 MG, Sodium Chloride IRRIG Soln 3,000 ML IR ONE ×2 (08:00→12:04)
[2021-04-09] MEDS ORDERED: *HR* Propofol 200 MG/20 ML VIAL IVP ONE (08:16)
[2021-04-09] MEDS ORDERED: *HR* FentaNYL (PF) 100 MCG/2 ML VIAL ONE (08:16)
[2021-04-09] MEDS ORDERED: *HR* Succinylcholine 200 MG/10 ML VIAL IVP ONE (08:16)
[2021-04-09] MEDS ORDERED: Lidocaine -MPF 2% 2 ML VIAL ONE (08:16)
[2021-04-09] MEDS ORDERED: *HR* OxyCODONE Immed Rel 5 MG TABLET PO PRN (08:56)
[2021-04-09] MEDS ORDERED: Ondansetron 4 MG/2 ML VIAL IVP PRN (08:56)
[2021-04-09] MEDS ORDERED: *HR* FentaNYL (PF) 100 MCG/2 ML VIAL IVP PRN (08:56)
[2021-04-09] MEDS ORDERED: Cyanocobalamin (B-12) 1,000 MCG TABLET PO SCH (09:00)
[2021-04-09] MEDS ORDERED: Ringers Solution, Lactated 1,000 ML IVC SCH (09:00)
[2021-04-09] MEDS ORDERED: Finasteride 5 MG TABLET PO SCH (09:00)
[2021-04-09] MEDS ORDERED: Aspirin Enteric Coated 81 MG Tablet PO SCH (09:00)
[2021-04-09] MEDS ORDERED: polyethylene glycoL 3350 17 GM POWD.PACK PO SCH (09:00)
[2021-04-09] MEDS ORDERED: Multivit/Ca/Min/Fe/FA 1 TAB TABLET PO SCH (09:00)
[2021-04-09] MEDS ORDERED: atenoloL 50 MG TABLET PO SCH (09:00)
[2021-04-09] MEDS ORDERED: Gabapentin 300 MG CAPSULE PO SCH (09:00)
[2021-04-09] MEDS ORDERED: Cholecalciferol (D-3) 1,000 UNIT (25MCG) TABLET PO SCH (09:00)
[2021-04-09] MEDS ORDERED: Sennosides 8.6 MG TABLET PO SCH (09:00)
[2021-04-09] MEDS ORDERED: EPHEDrine 50 MG/ML VIAL ONE (09:49)
[2021-04-09] MEDS ORDERED: Ondansetron 4 MG/2 ML VIAL ONE (09:59)
[2021-04-09] MEDS ORDERED: *HR* LORazepam 2 MG/ML VIAL ONE (10:27)
[2021-04-09] MEDS ORDERED: Lidocaine 1% 20 ML MDV ONE (10:40)
[2021-04-09] MEDS ORDERED: *HR* Rocuronium Bromide 50 MG/5 ML VIAL ONE (11:38)
[2021-04-09] MEDS ORDERED: D5% in Water 1,000 ML IVC PRN ×2 (12:04→18:47)
[2021-04-09] MEDS ORDERED: Gadolinium Contrast Agent (WT Based) IV PRN (12:04)
[2021-04-09] MEDS ORDERED: Naloxone 0.4 MG/ML INJ IVP PRN (12:04)
[2021-04-09] MEDS ORDERED: *HR* Dextrose 50 % in Water (Vial) 50 ML VIAL IVP PRN ×2 (12:04→18:47)
[2021-04-09] MEDS ORDERED: Dextrose Gel 15 GM/37.5 ML TUBE PO PRN ×4 (12:04→18:47)
[2021-04-09] MEDS ORDERED: *HR* LORazepam 2 MG/ML VIAL IVP ONE (12:22)
[2021-04-09] MEDS ORDERED: Dexmedetomidine HCl 400 MCG/100 ML MLS IVC SCH (14:30)
[2021-04-09] MEDS ORDERED: Perflutren Lipid Microsphere 1.3 ML in 0.9 % Sodium Chloride 8.7 ML IVP PRN (15:01)
[2021-04-09 17:08] LABS: Troponin I 0.65 ng/mL (< 0.04)
[2021-04-09] MEDS: Vancomycin 1,500 MG/265 ML IV.SOLN IVPB SCH (17:46)
[2021-04-09] MEDS ORDERED: *HR* Heparin 5,000 UNIT/ML VIAL SQ SCH (18:00)
[2021-04-09] MEDS ORDERED: Vancomycin 1,500 MG/265 ML IV.SOLN IVPB SCH (18:00)
[2021-04-09] MEDS ORDERED: Insulin LISPRO 300 UNITS/3 ML VIAL SUBQ SCH (18:00)
[2021-04-09] MEDS: Gabapentin 300 MG CAPSULE PO SCH (20:46)
[2021-04-09] MEDS ORDERED: Melatonin 3 MG TABLET PO SCH (22:15)
[2021-04-09] MEDS ORDERED: *HR* Heparin 5,000 UNIT/ML VIAL IVP ONE (23:14)
[2021-04-09] MEDS ORDERED: *HR* Heparin 5,000 UNIT/ML VIAL IVP PRN ×2 (23:14)
[2021-04-09] MEDS ORDERED: Heparin 25,000UNIT/250ML 1/2NS 25,000 UNIT/250 ML IV.SOLN IVC SCH (23:15)
[2021-04-10 00:28] LABS: Basophils % 0.1 %; Eosinophils % 0.1 %; Hematocrit 29.1 % (37.5-50.1); Hemoglobin 9.6 g/dL (12.9-16.9); Immature Granulocytes % 2.6 % (0-4); Lymphocytes # 1.8 K/mcL (0.6-4.6); Mean Corpuscular Hemoglobin 27.7 pg (28.0-33.3); Mean Corpuscular Volume 84.1 fL (83.0-100.0); Mean Platelet Volume 11.3 fL (9.4-12.4); Monocytes # 1.4 K/mcL (0.0-1.3); Monocytes % 7.3 %; Neutrophils # 15.8 K/mcL (1.6-8.9); Platelet Count 154 K/mcL (140-400); Red Blood Count 3.46 M/mcL (4.19-5.50); Red Cell Distribution Width 14.1 % (11.5-14.5); Segmented Neutrophils % 80.9 %; White Blood Count 19.5 K/mcL (4.3-11.1)
[2021-04-10 00:40] LABS: Heparin anti-factor XA UFH 0.36 IU/mL (0.30-0.70); INR 1.4; Prothrombin Time 15.8 Seconds (9.4-12.1)
[2021-04-10 00:47] LABS: Calcium 7.7 mg/dL (8.6-10.3); Potassium 4.3 mEq/L (3.5-5.1)
[2021-04-10] MEDS: Levalbuterol Neb 1.25 MG/3 ML IH SCH ×4 (03:19→21:50)
[2021-04-10] MEDS: Piperacillin/Tazobactam 3.375 GM in 0.9 % Sodium Chloride Mini Bag 100 ML IVPB SCH ×3 (04:55→20:00)
[2021-04-10] MEDS: Gabapentin 300 MG CAPSULE PO SCH ×2 (08:58→20:48)
[2021-04-10] MEDS: Finasteride 5 MG TABLET PO SCH (08:58)
[2021-04-10] MEDS: Multivit/Ca/Min/Fe/FA 1 TAB TABLET PO SCH (08:59)
[2021-04-10] MEDS: Sennosides 8.6 MG TABLET PO SCH (08:59)
[2021-04-10] MEDS: Cholecalciferol (D-3) 1,000 UNIT (25MCG) TABLET PO SCH (09:00)
[2021-04-10] MEDS: Aspirin Enteric Coated 81 MG Tablet PO SCH (09:01)
[2021-04-10] MEDS: Cyanocobalamin (B-12) 1,000 MCG TABLET PO SCH (09:04)
[2021-04-10] MEDS: polyethylene glycoL 3350 17 GM POWD.PACK PO SCH (09:04)
[2021-04-10] MEDS: atenoloL 50 MG TABLET PO SCH (09:05)
[2021-04-10] MEDS: Insulin LISPRO 300 UNITS/3 ML VIAL SUBQ SCH ×4 (09:11→20:51)
[2021-04-10] MEDS: Acetaminophen 325 MG TABLET PO PRN (12:04)
[2021-04-10] MEDS: tiZANidine 4 MG TABLET PO PRN ×2 (12:04→20:49)
[2021-04-10] MEDS: Vancomycin 1,500 MG/265 ML IV.SOLN IVPB SCH (17:04)
[2021-04-10] MEDS ORDERED: *HR* HYDROmorphone 2 MG/ML SYRINGE IVP ONE (18:15)
[2021-04-11] MEDS: Piperacillin/Tazobactam 3.375 GM in 0.9 % Sodium Chloride Mini Bag 100 ML IVPB SCH ×3 (03:49→19:55)
[2021-04-11] MEDS: Levalbuterol Neb 1.25 MG/3 ML IH SCH ×4 (04:10→22:02)
[2021-04-11] MEDS: tiZANidine 4 MG TABLET PO PRN ×2 (05:44→23:01)
[2021-04-11] MEDS: polyethylene glycoL 3350 17 GM POWD.PACK PO SCH (08:09)
[2021-04-11] MEDS: Cholecalciferol (D-3) 1,000 UNIT (25MCG) TABLET PO SCH (08:12)
[2021-04-11] MEDS: Aspirin Enteric Coated 81 MG Tablet PO SCH (08:14)
[2021-04-11] MEDS: Gabapentin 300 MG CAPSULE PO SCH ×2 (08:14→19:55)
[2021-04-11] MEDS: Sennosides 8.6 MG TABLET PO SCH (08:14)
[2021-04-11] MEDS: Finasteride 5 MG TABLET PO SCH (08:14)
[2021-04-11] MEDS: Cyanocobalamin (B-12) 1,000 MCG TABLET PO SCH (08:15)
[2021-04-11] MEDS: atenoloL 50 MG TABLET PO SCH (08:15)
[2021-04-11] MEDS: Insulin LISPRO 300 UNITS/3 ML VIAL SUBQ SCH ×3 (08:17→16:58)
[2021-04-11 11:06] LABS: Basophils % 0.2 %; Eosinophils # 0.2 K/mcL (0.0-0.6); Eosinophils % 1.2 %; Hematocrit 30.3 % (37.5-50.1); Hemoglobin 9.8 g/dL (12.9-16.9); Immature Granulocytes % 1.9 % (0-4); Lymphocytes # 1.4 K/mcL (0.6-4.6); Lymphocytes % 10.9 %; Mean Corpuscular HGB Conc 32.3 g/dL (31.6-35.5); Mean Corpuscular Hemoglobin 27.5 pg (28.0-33.3); Mean Corpuscular Volume 84.9 fL (83.0-100.0); Mean Platelet Volume 11.4 fL (9.4-12.4); Monocytes # 0.9 K/mcL (0.0-1.3); Monocytes % 6.9 %; Neutrophils # 10.3 K/mcL (1.6-8.9); Platelet Count 170 K/mcL (140-400); Red Blood Count 3.57 M/mcL (4.19-5.50); Red Cell Distribution Width 13.8 % (11.5-14.5); Segmented Neutrophils % 78.9 %
[2021-04-11 11:22] LABS: Calcium 8.2 mg/dL (8.6-10.3); Magnesium 2.2 mg/dL (1.6-2.6); Potassium 4.5 mEq/L (3.5-5.1)
[2021-04-11] MEDS ORDERED: Acetaminophen IV 1,000 MG/100 ML BAG IVPB ONE (16:29)
[2021-04-11] MEDS: *HR* HYDROcodone/Acet 5/325 mg TABLET PO PRN (17:09)
[2021-04-11] MEDS ORDERED: Vancomycin 2,000 MG/520 ML IV.SOLN IVPB SCH (18:00)
[2021-04-11] MEDS: Sennosides/Docusate Sodium TABLET PO SCH (19:55)
[2021-04-11] MEDS ORDERED: Insulin DETEMIR 100 UNIT/ML X5UNITS SUBQ SCH (21:00)
[2021-04-12] MEDS ORDERED: Haloperidol Lactate 5 MG/ML VIAL IVP ONE (00:16)
[2021-04-12] MEDS ORDERED: Piperacillin/Tazobactam 3.375 GM VIAL ONE (03:25)
[2021-04-12] MEDS: Piperacillin/Tazobactam 3.375 GM in 0.9 % Sodium Chloride Mini Bag 100 ML IVPB SCH ×3 (03:36→18:46)
[2021-04-12 04:06] LABS: Basophils % 0.4 %; Eosinophils # 0.2 K/mcL (0.0-0.6); Eosinophils % 1.9 %; Hematocrit 30.9 % (37.5-50.1); Immature Granulocytes % 2.5 % (0-4); Lymphocytes # 1.5 K/mcL (0.6-4.6); Mean Corpuscular HGB Conc 32.4 g/dL (31.6-35.5); Mean Corpuscular Hemoglobin 27.5 pg (28.0-33.3); Mean Corpuscular Volume 84.9 fL (83.0-100.0); Mean Platelet Volume 10.9 fL (9.4-12.4); Monocytes % 9.5 %; Neutrophils # 7.6 K/mcL (1.6-8.9); Platelet Count 196 K/mcL (140-400); Red Blood Count 3.64 M/mcL (4.19-5.50); Red Cell Distribution Width 13.7 % (11.5-14.5); Segmented Neutrophils % 71.7 %; White Blood Count 10.6 K/mcL (4.3-11.1)
[2021-04-12] MEDS: Levalbuterol Neb 1.25 MG/3 ML IH SCH ×4 (04:08→22:51)
[2021-04-12 04:12] LABS: BUN/Creatinine Ratio 12 (6-26); Blood Urea Nitrogen 16 mg/dL (8-23); Calcium 8.1 mg/dL (8.6-10.3); Carbon Dioxide 23 mEq/L (23-29); Chloride 103 mEq/L (98-107); Glucose 217 mg/dL (70-105); Magnesium 2.2 mg/dL (1.6-2.6); Osmolality,Calculated 282 (280-300); Potassium 4.1 mEq/L (3.5-5.1); Sodium 132 mEq/L (136-145); eGFR For African Americans > 60 (> 60); eGFR For Non-African Americans 53 (> 60)
[2021-04-12] MEDS: Insulin LISPRO 300 UNITS/3 ML VIAL SUBQ SCH ×3 (08:01→18:45)
[2021-04-12] MEDS: atenoloL 50 MG TABLET PO SCH (08:02)
[2021-04-12] MEDS: Sennosides/Docusate Sodium TABLET PO SCH ×2 (08:02→20:43)
[2021-04-12] MEDS: Gabapentin 300 MG CAPSULE PO SCH ×2 (08:02→20:43)
[2021-04-12] MEDS: Finasteride 5 MG TABLET PO SCH (08:03)
[2021-04-12] MEDS: Cholecalciferol (D-3) 1,000 UNIT (25MCG) TABLET PO SCH (08:03)
[2021-04-12] MEDS: Aspirin Enteric Coated 81 MG Tablet PO SCH (08:03)
[2021-04-12] MEDS: Multivit/Ca/Min/Fe/FA 1 TAB TABLET PO SCH (08:03)
[2021-04-12] MEDS: Cyanocobalamin (B-12) 1,000 MCG TABLET PO SCH (08:03)
[2021-04-12] MEDS: polyethylene glycoL 3350 17 GM POWD.PACK PO SCH (08:05)
[2021-04-12] MEDS ORDERED: carvediloL 6.25 MG TABLET PO SCH (17:00)
[2021-04-12] MEDS: carvediloL 6.25 MG TABLET PO SCH (20:47)
[2021-04-12] MEDS ORDERED: Insulin DETEMIR 100 UNIT/ML X5UNITS SUBQ SCH (21:00)
[2021-04-13 03:42] LABS: Basophils # 0.1 K/mcL (0.0-0.2); Basophils % 0.7 %; Eosinophils # 0.2 K/mcL (0.0-0.6); Hematocrit 31.6 % (37.5-50.1); Hemoglobin 10.5 g/dL (12.9-16.9); Immature Granulocytes % 5.1 % (0-4); Lymphocytes # 1.4 K/mcL (0.6-4.6); Lymphocytes % 11.6 %; Mean Corpuscular HGB Conc 33.2 g/dL (31.6-35.5); Mean Corpuscular Hemoglobin 27.6 pg (28.0-33.3); Mean Corpuscular Volume 83.2 fL (83.0-100.0); Mean Platelet Volume 10.5 fL (9.4-12.4); Monocytes # 1.1 K/mcL (0.0-1.3); Monocytes % 9.1 %; Neutrophils # 8.7 K/mcL (1.6-8.9); Platelet Count 234 K/mcL (140-400); Red Cell Distribution Width 13.5 % (11.5-14.5); Segmented Neutrophils % 71.5 %; White Blood Count 12.2 K/mcL (4.3-11.1)
[2021-04-13 04:01] LABS: BUN/Creatinine Ratio 10 (6-26); Blood Urea Nitrogen 11 mg/dL (8-23); Calcium 8.7 mg/dL (8.6-10.3); Carbon Dioxide 22 mEq/L (23-29); Chloride 103 mEq/L (98-107); Glucose 187 mg/dL (70-105); Osmolality,Calculated 282 (280-300); Potassium 3.7 mEq/L (3.5-5.1); Sodium 134 mEq/L (136-145); eGFR For African Americans > 60 (> 60); eGFR For Non-African Americans > 60 (> 60)
[2021-04-13] MEDS: Levalbuterol Neb 1.25 MG/3 ML IH SCH ×4 (04:14→22:28)
[2021-04-13] MEDS: Piperacillin/Tazobactam 3.375 GM in 0.9 % Sodium Chloride Mini Bag 100 ML IVPB SCH ×3 (04:24→19:37)
[2021-04-13 04:30] LABS: Platelet Estimate Normal (Normal); Toxic Granulation Present (Not Present)
[2021-04-13] MEDS: Cholecalciferol (D-3) 1,000 UNIT (25MCG) TABLET PO SCH (09:10)
[2021-04-13] MEDS: carvediloL 6.25 MG TABLET PO SCH ×2 (09:10→17:09)
[2021-04-13] MEDS: Aspirin Enteric Coated 81 MG Tablet PO SCH (09:11)
[2021-04-13] MEDS: Multivit/Ca/Min/Fe/FA 1 TAB TABLET PO SCH (09:11)
[2021-04-13] MEDS: Finasteride 5 MG TABLET PO SCH (09:12)
[2021-04-13] MEDS: Sennosides/Docusate Sodium TABLET PO SCH ×2 (09:12→19:38)
[2021-04-13] MEDS: hydrALAZINE 25 MG TABLET PO SCH ×3 (09:12→19:38)
[2021-04-13] MEDS: Gabapentin 300 MG CAPSULE PO SCH ×2 (09:13→19:38)
[2021-04-13] MEDS: Cyanocobalamin (B-12) 1,000 MCG TABLET PO SCH (09:13)
[2021-04-13] MEDS: polyethylene glycoL 3350 17 GM POWD.PACK PO SCH (09:13)
[2021-04-13] MEDS: Insulin LISPRO 300 UNITS/3 ML VIAL SUBQ SCH ×3 (09:25→17:12)
[2021-04-13] MEDS: Insulin DETEMIR 100 UNIT/ML X5UNITS SUBQ SCH (19:45)
[2021-04-13] MEDS ORDERED: Melatonin 3 MG TABLET PO ONE (20:00)
[2021-04-14] MEDS: Levalbuterol Neb 1.25 MG/3 ML IH SCH ×4 (03:54→22:17)
[2021-04-14] MEDS: Piperacillin/Tazobactam 3.375 GM in 0.9 % Sodium Chloride Mini Bag 100 ML IVPB SCH ×3 (04:58→20:40)
[2021-04-14 05:51] LABS: Basophils # 0.1 K/mcL (0.0-0.2); Basophils % 0.9 %; Eosinophils # 0.4 K/mcL (0.0-0.6); Eosinophils % 3.2 %; Hematocrit 33.4 % (37.5-50.1); Hemoglobin 11.1 g/dL (12.9-16.9); Immature Granulocytes % 7.5 % (0-4); Lymphocytes # 1.9 K/mcL (0.6-4.6); Lymphocytes % 13.6 %; Mean Corpuscular HGB Conc 33.2 g/dL (31.6-35.5); Mean Corpuscular Hemoglobin 27.5 pg (28.0-33.3); Mean Corpuscular Volume 82.9 fL (83.0-100.0); Mean Platelet Volume 10.7 fL (9.4-12.4); Monocytes % 8.3 %; Neutrophils # 9.2 K/mcL (1.6-8.9); Platelet Count 289 K/mcL (140-400); Red Blood Count 4.03 M/mcL (4.19-5.50); Red Cell Distribution Width 13.6 % (11.5-14.5); Segmented Neutrophils % 66.5 %; White Blood Count 13.8 K/mcL (4.3-11.1)
[2021-04-14 05:57] LABS: Monocytes # 1.2 K/mcL (0.0-1.3)
[2021-04-14 06:12] LABS: BUN/Creatinine Ratio 13 (6-26); Blood Urea Nitrogen 13 mg/dL (8-23); Calcium 8.7 mg/dL (8.6-10.3); Carbon Dioxide 19 mEq/L (23-29); Chloride 104 mEq/L (98-107); Glucose 165 mg/dL (70-105); Osmolality,Calculated 284 (280-300); Potassium 3.5 mEq/L (3.5-5.1); Sodium 135 mEq/L (136-145); eGFR For African Americans > 60 (> 60); eGFR For Non-African Americans > 60 (> 60)
[2021-04-14 06:13] LABS: Anisocytosis 1+ (Not Present); Platelet Estimate Normal (Normal)
[2021-04-14] MEDS: Aspirin Enteric Coated 81 MG Tablet PO SCH (08:23)
[2021-04-14] MEDS: carvediloL 6.25 MG TABLET PO SCH ×2 (08:23→17:48)
[2021-04-14] MEDS: Cholecalciferol (D-3) 1,000 UNIT (25MCG) TABLET PO SCH (08:23)
[2021-04-14] MEDS: Sennosides/Docusate Sodium TABLET PO SCH (08:23)
[2021-04-14] MEDS: Cyanocobalamin (B-12) 1,000 MCG TABLET PO SCH (08:24)
[2021-04-14] MEDS: Multivit/Ca/Min/Fe/FA 1 TAB TABLET PO SCH (08:24)
[2021-04-14] MEDS: Finasteride 5 MG TABLET PO SCH (08:24)
[2021-04-14] MEDS: Gabapentin 300 MG CAPSULE PO SCH ×2 (08:24→20:40)
[2021-04-14] MEDS: hydrALAZINE 25 MG TABLET PO SCH ×3 (08:24→20:41)
[2021-04-14] MEDS: polyethylene glycoL 3350 17 GM POWD.PACK PO SCH (08:25)
[2021-04-14] MEDS: Insulin LISPRO 300 UNITS/3 ML VIAL SUBQ SCH ×3 (08:33→18:06)
[2021-04-14] MEDS: *HR* HYDROcodone/Acet 5/325 mg TABLET PO PRN ×2 (10:17→20:41)
[2021-04-14] MEDS: Melatonin 3 MG TABLET PO SCH (20:41)
[2021-04-14] MEDS: Insulin DETEMIR 100 UNIT/ML X5UNITS SUBQ SCH (20:47)
[2021-04-14] MEDS ORDERED: Levalbuterol Neb 1.25 MG/3 ML IH PRN (22:18)
[2021-04-15] MEDS ORDERED: *HR* Metoprolol 5 MG/5 ML VIAL IVP ONE (03:35)
[2021-04-15] MEDS: Piperacillin/Tazobactam 3.375 GM in 0.9 % Sodium Chloride Mini Bag 100 ML IVPB SCH ×3 (04:03→21:14)
[2021-04-15 04:51] LABS: Hematocrit 31.4 % (37.5-50.1); Hemoglobin 10.6 g/dL (12.9-16.9); Mean Corpuscular HGB Conc 33.8 g/dL (31.6-35.5); Mean Corpuscular Hemoglobin 27.8 pg (28.0-33.3); Mean Corpuscular Volume 82.4 fL (83.0-100.0); Platelet Count 270 K/mcL (140-400); Red Blood Count 3.81 M/mcL (4.19-5.50); Red Cell Distribution Width 13.8 % (11.5-14.5); White Blood Count 12.3 K/mcL (4.3-11.1)
[2021-04-15 05:07] LABS: BUN/Creatinine Ratio 11 (6-26); Blood Urea Nitrogen 11 mg/dL (8-23); Calcium 7.9 mg/dL (8.6-10.3); Carbon Dioxide 19 mEq/L (23-29); Chloride 107 mEq/L (98-107); Glucose 132 mg/dL (70-105); Magnesium 1.9 mg/dL (1.6-2.6); Osmolality,Calculated 281 (280-300); Potassium 3.3 mEq/L (3.5-5.1); Sodium 135 mEq/L (136-145); eGFR For African Americans > 60 (> 60); eGFR For Non-African Americans > 60 (> 60)
[2021-04-15 05:58] LABS: Anisocytosis 1+ (Not Present); Lymphocytes # 1.5 K/mcL (0.6-4.6); Neutrophils # 8.6 K/mcL (1.6-8.9); Platelet Estimate Normal (Normal)
[2021-04-15] MEDS: *HR* HYDROcodone/Acet 5/325 mg TABLET PO PRN ×3 (08:44→22:37)
[2021-04-15] MEDS: Gabapentin 300 MG CAPSULE PO SCH ×2 (08:45→21:14)
[2021-04-15] MEDS: hydrALAZINE 25 MG TABLET PO SCH ×3 (08:45→21:14)
[2021-04-15] MEDS: Finasteride 5 MG TABLET PO SCH (08:45)
[2021-04-15] MEDS: carvediloL 25 MG TABLET PO SCH ×2 (08:45→16:46)
[2021-04-15] MEDS: Multivit/Ca/Min/Fe/FA 1 TAB TABLET PO SCH (08:46)
[2021-04-15] MEDS: Cyanocobalamin (B-12) 1,000 MCG TABLET PO SCH (08:46)
[2021-04-15] MEDS: Aspirin Enteric Coated 81 MG Tablet PO SCH (08:46)
[2021-04-15] MEDS: Cholecalciferol (D-3) 1,000 UNIT (25MCG) TABLET PO SCH (08:46)
[2021-04-15] MEDS: Isosorbide MONOnitrate (24 HR) 60 MG TAB.ER.24H PO SCH (08:46)
[2021-04-15] MEDS: polyethylene glycoL 3350 17 GM POWD.PACK PO SCH (08:58)
[2021-04-15] MEDS: Insulin LISPRO 300 UNITS/3 ML VIAL SUBQ SCH ×3 (08:58→17:33)
[2021-04-15] MEDS ORDERED: *HR* Midazolam HCl 2 MG/2 ML VIAL ONE (10:58)
[2021-04-15] MEDS ORDERED: *HR* Heparin 10,000 UNIT/10 ML VIAL ONE (10:58)
[2021-04-15] MEDS ORDERED: Heparin 1,000 UNITS/500 mL 500 ML ONE (10:58)
[2021-04-15] MEDS ORDERED: 0.9 % Sodium Chloride 2,000 ML ONE (10:59)
[2021-04-15] MEDS ORDERED: Isovue-250 100 ML INFUS..BTL ONE (10:59)
[2021-04-15] MEDS: Melatonin 3 MG TABLET PO SCH (21:14)
[2021-04-15] MEDS: Insulin DETEMIR 100 UNIT/ML X5UNITS SUBQ SCH (21:24)
[2021-04-16] MEDS: Acetaminophen 325 MG TABLET PO PRN (03:05)
[2021-04-16] MEDS: *HR* HYDROcodone/Acet 5/325 mg TABLET PO PRN ×2 (04:47→16:42)
[2021-04-16] MEDS: Piperacillin/Tazobactam 3.375 GM in 0.9 % Sodium Chloride Mini Bag 100 ML IVPB SCH ×3 (04:48→19:58)
[2021-04-16 05:50] LABS: Hematocrit 29.2 % (37.5-50.1); Hemoglobin 9.7 g/dL (12.9-16.9); Mean Corpuscular HGB Conc 33.2 g/dL (31.6-35.5); Mean Corpuscular Hemoglobin 27.6 pg (28.0-33.3); Mean Platelet Volume 10.2 fL (9.4-12.4); Platelet Count 301 K/mcL (140-400); Red Blood Count 3.52 M/mcL (4.19-5.50); White Blood Count 11.6 K/mcL (4.3-11.1)
[2021-04-16 06:06] LABS: BUN/Creatinine Ratio 12 (6-26); Blood Urea Nitrogen 14 mg/dL (8-23); Calcium 8.1 mg/dL (8.6-10.3); Carbon Dioxide 20 mEq/L (23-29); Chloride 107 mEq/L (98-107); Glucose 148 mg/dL (70-105); Magnesium 2.1 mg/dL (1.6-2.6); Osmolality,Calculated 285 (280-300); Potassium 3.4 mEq/L (3.5-5.1); Sodium 136 mEq/L (136-145); eGFR For African Americans > 60 (> 60); eGFR For Non-African Americans 58 (> 60)
[2021-04-16 06:32] LABS: Lymphocytes # 2.1 K/mcL (0.6-4.6); Monocytes # 0.7 K/mcL (0.0-1.3); Neutrophils # 8.8 K/mcL (1.6-8.9)
[2021-04-16 06:33] LABS: Platelet Estimate Normal (Normal)
[2021-04-16] MEDS: Insulin LISPRO 300 UNITS/3 ML VIAL SUBQ SCH ×3 (07:21→16:49)
[2021-04-16] MEDS: polyethylene glycoL 3350 17 GM POWD.PACK PO SCH (07:21)
[2021-04-16] MEDS: Aspirin Enteric Coated 81 MG Tablet PO SCH (07:21)
[2021-04-16] MEDS: Gabapentin 300 MG CAPSULE PO SCH ×2 (07:21→19:57)
[2021-04-16] MEDS: Cholecalciferol (D-3) 1,000 UNIT (25MCG) TABLET PO SCH (07:22)
[2021-04-16] MEDS: Finasteride 5 MG TABLET PO SCH (07:22)
[2021-04-16] MEDS: Cyanocobalamin (B-12) 1,000 MCG TABLET PO SCH (07:22)
[2021-04-16] MEDS: Multivit/Ca/Min/Fe/FA 1 TAB TABLET PO SCH (07:22)
[2021-04-16] MEDS: hydrALAZINE 25 MG TABLET PO SCH ×3 (07:38→19:57)
[2021-04-16] MEDS: Isosorbide MONOnitrate (24 HR) 60 MG TAB.ER.24H PO SCH (07:38)
[2021-04-16] MEDS: carvediloL 25 MG TABLET PO SCH ×2 (07:38→16:42)
[2021-04-16] MEDS: Calcium Gluconate 1gm/50mL 1 GM/50 ML BAG IVPB SCH ×2 (10:00→10:39)
[2021-04-16] MEDS ORDERED: Lidocaine 1% 20 ML MDV ONE (13:13)
[2021-04-16] MEDS ORDERED: Vancomycin 1,000 MG VIAL ONE (13:14)
[2021-04-16] MEDS ORDERED: *HR* FentaNYL (PF) 100 MCG/2 ML VIAL ONE ×2 (13:25→14:00)
[2021-04-16] MEDS ORDERED: *HR* Propofol 200 MG/20 ML VIAL IVP ONE (13:25)
[2021-04-16] MEDS ORDERED: Acetaminophen IV 1,000 MG/100 ML BAG IVPB ONE ×2 (13:28→14:20)
[2021-04-16] MEDS ORDERED: Dexmedetomidine HCl 400 MCG/100 ML MLS IVC ONE (13:28)
[2021-04-16] MEDS ORDERED: Ondansetron 4 MG/2 ML VIAL ONE (14:01)
[2021-04-16] MEDS ORDERED: Lidocaine -MPF 2% 2 ML VIAL ONE (14:01)
[2021-04-16] MEDS ORDERED: *HR* OxyCODONE Immed Rel 5 MG TABLET PO PRN (14:20)
[2021-04-16] MEDS ORDERED: *HR* HYDROmorphone 2 MG TABLET PO PRN (14:20)
[2021-04-16] MEDS ORDERED: *HR* Labetalol 20 MG/4 ML SYRINGE IVP PRN (14:20)
[2021-04-16] MEDS ORDERED: *HR* HYDROmorphone (PF) 1 MG/ML SYRINGE IVP PRN (14:20)
[2021-04-16] MEDS ORDERED: Famotidine 20 MG/2 ML VIAL IVP ONE (14:20)
[2021-04-16] MEDS: tiZANidine 4 MG TABLET PO PRN (20:12)
[2021-04-16] MEDS: Melatonin 3 MG TABLET PO SCH (23:38)
[2021-04-16] MEDS: Lactobacillus 1 EACH CAP.SPRINK PO SCH (23:39)
[2021-04-16] MEDS: Insulin DETEMIR 100 UNIT/ML X5UNITS SUBQ SCH (23:40)
[2021-04-17] MEDS: Piperacillin/Tazobactam 3.375 GM in 0.9 % Sodium Chloride Mini Bag 100 ML IVPB SCH ×3 (06:22→21:57)
[2021-04-17] MEDS: Cyanocobalamin (B-12) 1,000 MCG TABLET PO SCH (10:09)
[2021-04-17] MEDS: Acetaminophen 325 MG TABLET PO PRN (10:09)
[2021-04-17] MEDS: Aspirin Enteric Coated 81 MG Tablet PO SCH (10:09)
[2021-04-17] MEDS: Lactobacillus 1 EACH CAP.SPRINK PO SCH (10:11)
[2021-04-17] MEDS: Gabapentin 300 MG CAPSULE PO SCH ×2 (10:11→21:58)
[2021-04-17] MEDS: Isosorbide MONOnitrate (24 HR) 60 MG TAB.ER.24H PO SCH (10:11)
[2021-04-17] MEDS: hydrALAZINE 25 MG TABLET PO SCH ×2 (10:12→21:59)
[2021-04-17] MEDS: Cholecalciferol (D-3) 1,000 UNIT (25MCG) TABLET PO SCH (10:12)
[2021-04-17] MEDS: Finasteride 5 MG TABLET PO SCH (10:12)
[2021-04-17] MEDS: carvediloL 25 MG TABLET PO SCH ×2 (10:12→17:13)
[2021-04-17] MEDS: polyethylene glycoL 3350 17 GM POWD.PACK PO SCH (10:13)
[2021-04-17] MEDS: Insulin LISPRO 300 UNITS/3 ML VIAL SUBQ SCH ×3 (10:22→17:14)
[2021-04-17] MEDS: Multivit/Ca/Min/Fe/FA 1 TAB TABLET PO SCH (10:22)
[2021-04-17] MEDS: *HR* HYDROcodone/Acet 5/325 mg TABLET PO PRN (11:26)
[2021-04-17 12:25] LABS: Basophils # 0.1 K/mcL (0.0-0.2); Basophils % 0.4 %; Eosinophils # 0.5 K/mcL (0.0-0.6); Eosinophils % 3.4 %; Hematocrit 28.3 % (37.5-50.1); Hemoglobin 9.2 g/dL (12.9-16.9); Immature Granulocytes % 3.7 % (0-4); Lymphocytes # 1.7 K/mcL (0.6-4.6); Lymphocytes % 11.7 %; Mean Corpuscular HGB Conc 32.5 g/dL (31.6-35.5); Mean Corpuscular Hemoglobin 27.4 pg (28.0-33.3); Mean Corpuscular Volume 84.2 fL (83.0-100.0); Mean Platelet Volume 10.3 fL (9.4-12.4); Monocytes % 6.8 %; Neutrophils # 10.8 K/mcL (1.6-8.9); Platelet Count 271 K/mcL (140-400); Red Blood Count 3.36 M/mcL (4.19-5.50); Red Cell Distribution Width 14.1 % (11.5-14.5); White Blood Count 14.6 K/mcL (4.3-11.1)
[2021-04-17 12:42] LABS: Alanine Aminotransferase 10 Units/L (7-52); Albumin 2.9 g/dL (3.5-5.7); Albumin/Globulin Ratio 1.2 (1.1-2.2); Alkaline Phosphatase 67 Units/L (34-104); Aspartate Amino Transferase 10 Units/L (13-39); BUN/Creatinine Ratio 14 (6-26); Bilirubin,Total 0.5 mg/dL (0.3-1.0); Blood Urea Nitrogen 16 mg/dL (8-23); Calcium 7.9 mg/dL (8.6-10.3); Carbon Dioxide 20 mEq/L (23-29); Chloride 107 mEq/L (98-107); Globulin 2.4 g/dL (2.4-3.5); Glucose 195 mg/dL (70-105); Osmolality,Calculated 287 (280-300); Phosphorous 2.7 mg/dL (2.7-4.5); Potassium 3.7 mEq/L (3.5-5.1); Sodium 135 mEq/L (136-145); Total Protein 5.3 g/dL (6.4-8.9); eGFR For African Americans > 60 (> 60); eGFR For Non-African Americans 60 (> 60)
[2021-04-17] MEDS: tiZANidine 4 MG TABLET PO PRN (14:32)
[2021-04-17] MEDS ORDERED: Dextrose Gel 15 GM/37.5 ML TUBE PO PRN ×2 (16:05)
[2021-04-17] MEDS ORDERED: *HR* HYDROcodone/Acet 5/325 mg TABLET PO PRN (16:05)
[2021-04-17] MEDS ORDERED: Acetaminophen 325 MG TABLET PO PRN (16:05)
[2021-04-17] MEDS ORDERED: D5% in Water 1,000 ML IVC PRN (16:05)
[2021-04-17] MEDS ORDERED: tiZANidine 4 MG TABLET PO PRN (16:05)
[2021-04-17] MEDS ORDERED: Naloxone 0.4 MG/ML INJ IVP PRN (16:05)
[2021-04-17] MEDS ORDERED: *HR* Dextrose 50 % in Water (Vial) 50 ML VIAL IVP PRN (16:05)
[2021-04-17] MEDS ORDERED: *HR* LORazepam 2 MG/ML VIAL IVP PRN (16:05)
[2021-04-17] MEDS: *HR* OxyCODONE/APAP 5/325 TABLET PO PRN ×2 (17:13→23:23)
[2021-04-17] MEDS: Melatonin 3 MG TABLET PO SCH (21:58)
[2021-04-17] MEDS: Insulin DETEMIR 100 UNIT/ML X5UNITS SUBQ SCH (22:01)
[2021-04-18] MEDS: *HR* Enoxaparin 40 MG/0.4 ML SYRINGE SQ SCH (05:01)
[2021-04-18] MEDS: Piperacillin/Tazobactam 3.375 GM in 0.9 % Sodium Chloride Mini Bag 100 ML IVPB SCH ×3 (05:01→21:28)
[2021-04-18 05:36] LABS: Basophils % 0.4 %; Eosinophils # 0.6 K/mcL (0.0-0.6); Eosinophils % 5.7 %; Hematocrit 26.9 % (37.5-50.1); Immature Granulocytes % 4.2 % (0-4); Lymphocytes # 1.7 K/mcL (0.6-4.6); Lymphocytes % 15.9 %; Mean Corpuscular HGB Conc 33.5 g/dL (31.6-35.5); Mean Corpuscular Volume 83.5 fL (83.0-100.0); Mean Platelet Volume 9.7 fL (9.4-12.4); Monocytes # 0.7 K/mcL (0.0-1.3); Monocytes % 6.5 %; Platelet Count 252 K/mcL (140-400); Red Blood Count 3.22 M/mcL (4.19-5.50); Red Cell Distribution Width 13.9 % (11.5-14.5); Segmented Neutrophils % 67.3 %; White Blood Count 10.4 K/mcL (4.3-11.1)
[2021-04-18 05:51] LABS: BUN/Creatinine Ratio 10 (6-26); Blood Urea Nitrogen 11 mg/dL (8-23); Calcium 7.7 mg/dL (8.6-10.3); Carbon Dioxide 22 mEq/L (23-29); Chloride 108 mEq/L (98-107); Glucose 149 mg/dL (70-105); Magnesium 1.9 mg/dL (1.6-2.6); Osmolality,Calculated 282 (280-300); Phosphorous 2.5 mg/dL (2.7-4.5); Potassium 3.2 mEq/L (3.5-5.1); Sodium 135 mEq/L (136-145); eGFR For African Americans > 60 (> 60); eGFR For Non-African Americans > 60 (> 60)
[2021-04-18] MEDS: polyethylene glycoL 3350 17 GM POWD.PACK PO SCH (07:57)
[2021-04-18] MEDS: Isosorbide MONOnitrate (24 HR) 60 MG TAB.ER.24H PO SCH (07:58)
[2021-04-18] MEDS: Cholecalciferol (D-3) 1,000 UNIT (25MCG) TABLET PO SCH (07:58)
[2021-04-18] MEDS: Aspirin Enteric Coated 81 MG Tablet PO SCH (07:58)
[2021-04-18] MEDS: hydrALAZINE 25 MG TABLET PO SCH ×3 (07:59→21:51)
[2021-04-18] MEDS: Finasteride 5 MG TABLET PO SCH (07:59)
[2021-04-18] MEDS: Gabapentin 300 MG CAPSULE PO SCH ×2 (08:00→21:29)
[2021-04-18] MEDS: Multivit/Ca/Min/Fe/FA 1 TAB TABLET PO SCH (08:00)
[2021-04-18] MEDS: Insulin LISPRO 300 UNITS/3 ML VIAL SUBQ SCH ×3 (08:01→16:50)
[2021-04-18] MEDS: carvediloL 25 MG TABLET PO SCH ×2 (08:01→16:50)
[2021-04-18] MEDS: Cyanocobalamin (B-12) 1,000 MCG TABLET PO SCH (08:01)
[2021-04-18] MEDS: *HR* OxyCODONE/APAP 5/325 TABLET PO PRN ×2 (08:14→21:31)
[2021-04-18] MEDS: Calcium Gluconate 1gm/50mL 1 GM/50 ML BAG IVPB SCH ×2 (10:13→10:42)
[2021-04-18] MEDS: Levalbuterol Neb 1.25 MG/3 ML IH PRN ×2 (17:46→23:48)
[2021-04-18] MEDS: Insulin DETEMIR 100 UNIT/ML X5UNITS SUBQ SCH (21:28)
[2021-04-18] MEDS: Melatonin 3 MG TABLET PO SCH (21:29)
[2021-04-19] MEDS: Piperacillin/Tazobactam 3.375 GM in 0.9 % Sodium Chloride Mini Bag 100 ML IVPB SCH ×3 (04:18→20:23)
[2021-04-19 04:49] LABS: Basophils % 0.4 %; Eosinophils # 0.5 K/mcL (0.0-0.6); Hematocrit 28.1 % (37.5-50.1); Hemoglobin 9.5 g/dL (12.9-16.9); Immature Granulocytes % 2.9 % (0-4); Lymphocytes # 1.6 K/mcL (0.6-4.6); Lymphocytes % 16.9 %; Mean Corpuscular HGB Conc 33.8 g/dL (31.6-35.5); Mean Corpuscular Hemoglobin 27.8 pg (28.0-33.3); Mean Corpuscular Volume 82.2 fL (83.0-100.0); Mean Platelet Volume 9.8 fL (9.4-12.4); Monocytes # 0.7 K/mcL (0.0-1.3); Monocytes % 7.4 %; Neutrophils # 6.4 K/mcL (1.6-8.9); Platelet Count 236 K/mcL (140-400); Red Blood Count 3.42 M/mcL (4.19-5.50); Red Cell Distribution Width 13.9 % (11.5-14.5); Segmented Neutrophils % 67.4 %; White Blood Count 9.5 K/mcL (4.3-11.1)
[2021-04-19 05:09] LABS: BUN/Creatinine Ratio 8 (6-26); Blood Urea Nitrogen 7 mg/dL (8-23); Carbon Dioxide 22 mEq/L (23-29); Chloride 106 mEq/L (98-107); Glucose 117 mg/dL (70-105); Osmolality,Calculated 281 (280-300); Phosphorous 2.5 mg/dL (2.7-4.5); Potassium 3.3 mEq/L (3.5-5.1); Sodium 136 mEq/L (136-145); eGFR For African Americans > 60 (> 60); eGFR For Non-African Americans > 60 (> 60)
[2021-04-19] MEDS: *HR* Enoxaparin 40 MG/0.4 ML SYRINGE SQ SCH (07:10)
[2021-04-19] MEDS: Insulin LISPRO 300 UNITS/3 ML VIAL SUBQ SCH ×3 (10:37→18:12)
[2021-04-19] MEDS: hydrALAZINE 25 MG TABLET PO SCH ×3 (10:46→20:22)
[2021-04-19] MEDS: Finasteride 5 MG TABLET PO SCH (10:46)
[2021-04-19] MEDS: Cholecalciferol (D-3) 1,000 UNIT (25MCG) TABLET PO SCH (10:46)
[2021-04-19] MEDS: Gabapentin 300 MG CAPSULE PO SCH ×2 (10:47→20:22)
[2021-04-19] MEDS: Isosorbide MONOnitrate (24 HR) 60 MG TAB.ER.24H PO SCH (10:47)
[2021-04-19] MEDS: Multivit/Ca/Min/Fe/FA 1 TAB TABLET PO SCH (10:47)
[2021-04-19] MEDS: Aspirin Enteric Coated 81 MG Tablet PO SCH (10:47)
[2021-04-19] MEDS: Cyanocobalamin (B-12) 1,000 MCG TABLET PO SCH (10:48)
[2021-04-19] MEDS: Calcium Gluconate 1gm/50mL 1 GM/50 ML BAG IVPB SCH ×2 (10:49→11:35)
[2021-04-19] MEDS: carvediloL 25 MG TABLET PO SCH ×2 (10:53→18:06)
[2021-04-19] MEDS: polyethylene glycoL 3350 17 GM POWD.PACK PO SCH (11:00)
[2021-04-19] MEDS: Levalbuterol Neb 1.25 MG/3 ML IH PRN (15:14)
[2021-04-19] MEDS: Melatonin 3 MG TABLET PO SCH (20:21)
[2021-04-19] MEDS: Insulin DETEMIR 100 UNIT/ML X5UNITS SUBQ SCH (20:28)
[2021-04-19] MEDS: *HR* OxyCODONE/APAP 5/325 TABLET PO PRN (21:14)
[2021-04-20 03:36] LABS: BUN/Creatinine Ratio 25 (6-26); Blood Urea Nitrogen 21 mg/dL (8-23); Calcium 8.9 mg/dL (8.6-10.3); Carbon Dioxide 27 mEq/L (23-29); Chloride 106 mEq/L (98-107); Glucose 96 mg/dL (70-105); Osmolality,Calculated 293 (280-300); Potassium 4.3 mEq/L (3.5-5.1); Sodium 140 mEq/L (136-145); eGFR For African Americans > 60 (> 60); eGFR For Non-African Americans > 60 (> 60)
[2021-04-20] MEDS: Piperacillin/Tazobactam 3.375 GM in 0.9 % Sodium Chloride Mini Bag 100 ML IVPB SCH ×3 (03:46→20:41)
[2021-04-20 04:26] LABS: Basophils % 0.5 %; Eosinophils # 0.4 K/mcL (0.0-0.6); Eosinophils % 4.8 %; Hematocrit 26.5 % (37.5-50.1); Hemoglobin 8.9 g/dL (12.9-16.9); Immature Granulocytes % 2.3 % (0-4); Lymphocytes # 1.6 K/mcL (0.6-4.6); Lymphocytes % 18.2 %; Mean Corpuscular HGB Conc 33.6 g/dL (31.6-35.5); Mean Corpuscular Hemoglobin 27.8 pg (28.0-33.3); Mean Platelet Volume 10.3 fL (9.4-12.4); Monocytes # 0.7 K/mcL (0.0-1.3); Monocytes % 8.2 %; Neutrophils # 5.8 K/mcL (1.6-8.9); Platelet Count 229 K/mcL (140-400); White Blood Count 8.8 K/mcL (4.3-11.1)
[2021-04-20 04:27] LABS: Mean Corpuscular Volume 82.8 fL (83.0-100.0)
[2021-04-20] MEDS: *HR* Enoxaparin 40 MG/0.4 ML SYRINGE SQ SCH (04:58)
[2021-04-20] MEDS: hydrALAZINE 25 MG TABLET PO SCH ×3 (08:25→20:42)
[2021-04-20] MEDS: Multivit/Ca/Min/Fe/FA 1 TAB TABLET PO SCH (08:26)
[2021-04-20] MEDS: Finasteride 5 MG TABLET PO SCH (08:26)
[2021-04-20] MEDS: Aspirin Enteric Coated 81 MG Tablet PO SCH (08:26)
[2021-04-20] MEDS: carvediloL 25 MG TABLET PO SCH ×2 (08:26→16:45)
[2021-04-20] MEDS: Cholecalciferol (D-3) 1,000 UNIT (25MCG) TABLET PO SCH (08:26)
[2021-04-20] MEDS: Cyanocobalamin (B-12) 1,000 MCG TABLET PO SCH (08:27)
[2021-04-20] MEDS: Isosorbide MONOnitrate (24 HR) 60 MG TAB.ER.24H PO SCH (08:27)
[2021-04-20] MEDS: Gabapentin 300 MG CAPSULE PO SCH ×2 (08:27→20:42)
[2021-04-20] MEDS: Insulin LISPRO 300 UNITS/3 ML VIAL SUBQ SCH ×3 (08:28→16:45)
[2021-04-20] MEDS: polyethylene glycoL 3350 17 GM POWD.PACK PO SCH (08:29)
[2021-04-20] MEDS: Levalbuterol Neb 1.25 MG/3 ML IH PRN (12:32)
[2021-04-20] MEDS: hydroCHLOROthiazide 25 MG TABLET PO SCH (18:15)
[2021-04-20] MEDS: Melatonin 3 MG TABLET PO SCH (20:43)
[2021-04-20] MEDS: Insulin DETEMIR 100 UNIT/ML X5UNITS SUBQ SCH (20:44)
[2021-04-20] MEDS: *HR* OxyCODONE/APAP 5/325 TABLET PO PRN (20:56)
[2021-04-21 01:35] LABS: Hematocrit 28.3 % (37.5-50.1); Hemoglobin 9.3 g/dL (12.9-16.9); Mean Corpuscular HGB Conc 32.9 g/dL (31.6-35.5); Mean Corpuscular Volume 82.3 fL (83.0-100.0); Mean Platelet Volume 10.4 fL (9.4-12.4); Platelet Count 264 K/mcL (140-400); Red Blood Count 3.44 M/mcL (4.19-5.50); Red Cell Distribution Width 14.1 % (11.5-14.5); White Blood Count 8.8 K/mcL (4.3-11.1)
[2021-04-21 01:53] LABS: BUN/Creatinine Ratio 13 (6-26); Blood Urea Nitrogen 13 mg/dL (8-23); Calcium 8.4 mg/dL (8.6-10.3); Carbon Dioxide 22 mEq/L (23-29); Chloride 105 mEq/L (98-107); Glucose 186 mg/dL (70-105); Magnesium 1.9 mg/dL (1.6-2.6); Osmolality,Calculated 285 (280-300); Phosphorous 2.8 mg/dL (2.7-4.5); Potassium 3.4 mEq/L (3.5-5.1); Sodium 135 mEq/L (136-145); eGFR For African Americans > 60 (> 60); eGFR For Non-African Americans > 60 (> 60)
[2021-04-21] MEDS: Piperacillin/Tazobactam 3.375 GM in 0.9 % Sodium Chloride Mini Bag 100 ML IVPB SCH ×3 (03:51→21:15)
[2021-04-21] MEDS: Insulin LISPRO 300 UNITS/3 ML VIAL SUBQ SCH ×3 (07:42→16:59)
[2021-04-21] MEDS: *HR* Enoxaparin 40 MG/0.4 ML SYRINGE SQ SCH (07:42)
[2021-04-21] MEDS: Cholecalciferol (D-3) 1,000 UNIT (25MCG) TABLET PO SCH (07:43)
[2021-04-21] MEDS: hydroCHLOROthiazide 25 MG TABLET PO SCH (07:43)
[2021-04-21] MEDS: Multivit/Ca/Min/Fe/FA 1 TAB TABLET PO SCH (07:44)
[2021-04-21] MEDS: Aspirin Enteric Coated 81 MG Tablet PO SCH (07:44)
[2021-04-21] MEDS: Finasteride 5 MG TABLET PO SCH (07:44)
[2021-04-21] MEDS: carvediloL 25 MG TABLET PO SCH ×2 (07:44→16:59)
[2021-04-21] MEDS: Cyanocobalamin (B-12) 1,000 MCG TABLET PO SCH (07:44)
[2021-04-21] MEDS: Gabapentin 300 MG CAPSULE PO SCH ×2 (07:44→21:14)
[2021-04-21] MEDS: Isosorbide MONOnitrate (24 HR) 60 MG TAB.ER.24H PO SCH (07:45)
[2021-04-21] MEDS: hydrALAZINE 25 MG TABLET PO SCH ×3 (07:45→21:14)
[2021-04-21] MEDS: polyethylene glycoL 3350 17 GM POWD.PACK PO SCH (07:58)
[2021-04-21] MEDS: Calcium Gluconate 1gm/50mL 1 GM/50 ML BAG IVPB SCH ×2 (08:34→09:34)
[2021-04-21] MEDS: *HR* OxyCODONE/APAP 5/325 TABLET PO PRN ×2 (11:46→21:23)
[2021-04-21] MEDS: Levalbuterol Neb 1.25 MG/3 ML IH PRN (18:29)
[2021-04-21] MEDS: Melatonin 3 MG TABLET PO SCH (21:15)
[2021-04-21] MEDS: Insulin DETEMIR 100 UNIT/ML X5UNITS SUBQ SCH (21:20)
[2021-04-22] MEDS: Piperacillin/Tazobactam 3.375 GM in 0.9 % Sodium Chloride Mini Bag 100 ML IVPB SCH ×2 (03:23→11:45)
[2021-04-22] MEDS: *HR* OxyCODONE/APAP 5/325 TABLET PO PRN (04:28)
[2021-04-22] MEDS: *HR* Enoxaparin 40 MG/0.4 ML SYRINGE SQ SCH (05:31)
[2021-04-22 06:53] VITALS: BP 158/79; PULSE 67; TEMP 98.1; O2SAT 98
[2021-04-22] MEDS: Insulin LISPRO 300 UNITS/3 ML VIAL SUBQ SCH ×2 (07:27→12:59)
[2021-04-22] MEDS: Aspirin Enteric Coated 81 MG Tablet PO SCH (08:06)
[2021-04-22] MEDS: Gabapentin 300 MG CAPSULE PO SCH (08:06)
[2021-04-22] MEDS: Multivit/Ca/Min/Fe/FA 1 TAB TABLET PO SCH (08:06)
[2021-04-22] MEDS: Finasteride 5 MG TABLET PO SCH (08:06)
[2021-04-22] MEDS: hydrALAZINE 25 MG TABLET PO SCH (08:07)
[2021-04-22] MEDS: Cyanocobalamin (B-12) 1,000 MCG TABLET PO SCH (08:07)
[2021-04-22] MEDS: Cholecalciferol (D-3) 1,000 UNIT (25MCG) TABLET PO SCH (08:07)
[2021-04-22] MEDS: hydroCHLOROthiazide 25 MG TABLET PO SCH (08:07)
[2021-04-22] MEDS: carvediloL 25 MG TABLET PO SCH (08:07)
[2021-04-22] MEDS: polyethylene glycoL 3350 17 GM POWD.PACK PO SCH (08:08)
[2021-04-22] MEDS: Isosorbide MONOnitrate (24 HR) 60 MG TAB.ER.24H PO SCH (08:08)
== END 2021-04-22 15:04 | disposition home health service (06) | DRG 853 ==
LOC: EMEROOARM 16:37 → 3NENU 16:37 → SUATTDRO 19:49 → 3NENU 21:01 → SUATTDRO 04-09 20:05
PROVIDERS: ADMIT Internal Medicine; ATTEND Internal Medicine

== ENCOUNTER 2021-05-01 13:16 | Observation (INO) ==
[2021-05-01 14:52] LABS: Basophils # 0.1 K/mcL (0.0-0.2); Basophils % 0.6 %; Eosinophils # 0.5 K/mcL (0.0-0.6); Eosinophils % 5.5 %; Hematocrit 31.7 % (37.5-50.1); Hemoglobin 10.3 g/dL (12.9-16.9); Immature Granulocytes % 0.8 % (0-4); Lymphocytes # 1.2 K/mcL (0.6-4.6); Lymphocytes % 14.2 %; Mean Corpuscular HGB Conc 32.5 g/dL (31.6-35.5); Mean Corpuscular Hemoglobin 26.9 pg (28.0-33.3); Mean Corpuscular Volume 82.8 fL (83.0-100.0); Mean Platelet Volume 10.8 fL (9.4-12.4); Monocytes # 0.7 K/mcL (0.0-1.3); Monocytes % 7.9 %; Neutrophils # 5.9 K/mcL (1.6-8.9); Platelet Count 234 K/mcL (140-400); Red Blood Count 3.83 M/mcL (4.19-5.50); Red Cell Distribution Width 14.1 % (11.5-14.5); White Blood Count 8.4 K/mcL (4.3-11.1)
[2021-05-01 15:00] LABS: INR 1.2
[2021-05-01 15:03] LABS: Activated Partial Thrombo Time 29.7 Seconds (26.0-36.0)
[2021-05-01 15:27] LABS: Alanine Aminotransferase 16 Units/L (7-52); Albumin 3.4 g/dL (3.5-5.7); Albumin/Globulin Ratio 1.1 (1.1-2.2); Alkaline Phosphatase 75 Units/L (34-104); Aspartate Amino Transferase 19 Units/L (13-39); BUN/Creatinine Ratio 9 (6-26); Bilirubin,Total 0.8 mg/dL (0.3-1.0); Blood Urea Nitrogen 10 mg/dL (8-23); Calcium 8.8 mg/dL (8.6-10.3); Carbon Dioxide 23 mEq/L (23-29); Chloride 102 mEq/L (98-107); Globulin 3.1 g/dL (2.4-3.5); Glucose 210 mg/dL (70-105); Osmolality,Calculated 287 (280-300); Potassium 3.1 mEq/L (3.5-5.1); Sodium 136 mEq/L (136-145); Total Protein 6.5 g/dL (6.4-8.9); Troponin I < 0.03 ng/mL (< 0.04); eGFR For African Americans > 60 (> 60); eGFR For Non-African Americans > 60 (> 60)
[2021-05-01] MEDS ORDERED: Acetaminophen 325 MG TABLET PO PRN (15:27)
[2021-05-01] MEDS ORDERED: Ondansetron 4 MG/2 ML VIAL IVP PRN (15:27)
[2021-05-01] MEDS ORDERED: *HR* HYDROcodone/Acet 5/325 mg TABLET PO PRN (15:27)
[2021-05-01] MEDS ORDERED: Melatonin 3 MG TABLET PO PRN (15:27)
[2021-05-01] MEDS ORDERED: *HR* OxyCODONE Immed Rel 5 MG TABLET PO PRN (15:27)
[2021-05-01] MEDS ORDERED: Naloxone 0.4 MG/ML INJ IVP PRN (15:27)
[2021-05-01] MEDS ORDERED: Dextrose Gel 15 GM/37.5 ML TUBE PO PRN ×2 (15:29)
[2021-05-01] MEDS ORDERED: D5% in Water 1,000 ML IVC PRN (15:29)
[2021-05-01] MEDS ORDERED: *HR* Dextrose 50 % in Water (Vial) 50 ML VIAL IVP PRN (15:29)
[2021-05-01 16:06] LABS: Adenovirus Not Detected (Not Detect); Bordetella Pertussis Not Detected (Not Detect); Chlamydophila pneumoniae Not Detected (Not Detect); Coronavirus 229E Not Detected (Not Detect); Coronavirus HKU1 Not Detected (Not Detect); Coronavirus NL63 Not Detected (Not Detect); Coronavirus OC43 Not Detected (Not Detect); Human Metapneumovirus Not Detected (Not Detect); Human Rhinovirus/Enterovirus Not Detected (Not Detect); Influenza A Subtype 2009 H1 Not Detected (Not Detect); Influenza B Not Detected (Not Detect); Mycoplasma pneumoniae Not Detected (Not Detect); Parainfluenza Virus 1 Not Detected (Not Detect); Parainfluenza Virus 2 Not Detected (Not Detect); Parainfluenza Virus 3 Not Detected (Not Detect); Parainfluenza Virus 4 Not Detected (Not Detect); Respiratory Syncytial Virus Not Detected (Not Detect); SARS-CoV-2 Not Detected (Not Detect)
[2021-05-01] MEDS ORDERED: Piperacillin/Tazobactam 4.5 GM in 0.9 % Sodium Chloride Mini Bag 100 ML IVPB SCH (16:30)
[2021-05-01] MEDS ORDERED: Insulin LISPRO 300 UNITS/3 ML VIAL SUBQ SCH ×2 (16:30)
[2021-05-01 16:52] VITALS: BP 172/82; PULSE 79; TEMP 97.5; O2SAT 97
[2021-05-01] MEDS ORDERED: *HR* Enoxaparin 40 MG/0.4 ML SYRINGE SQ SCH (18:00)
[2021-05-01 18:36] LABS: C-Reactive Protein 23 mg/L (Less than 10)
[2021-05-01] MEDS ORDERED: Lactobacillus 1 EACH CAP.SPRINK PO SCH (21:00)
[2021-05-01] MEDS ORDERED: Insulin DETEMIR 100 UNIT/ML X5UNITS SUBQ SCH (21:00)
[2021-05-02] MEDS ORDERED: Multivit/Ca/Min/Fe/FA 1 TAB TABLET PO SCH (09:00)
[2021-05-02] MEDS ORDERED: Aspirin 81 MG TAB.CHEW PO SCH (09:00)
[2021-05-02] MEDS ORDERED: Cyanocobalamin (B-12) 1,000 MCG TABLET PO SCH (09:00)
[2021-05-02] MEDS ORDERED: Vancomycin 1,000 MG, Sodium Chloride IRRigation 1,000 ML IR ONE (10:25)
== END 2021-05-01 18:25 | disposition left against medical advice (07) ==
LOC: SUATTDRO → 3ANU 13:16 → EMEROOARM 13:16 → SUATTDRO 15:42 → 3ANU 16:41
PROVIDERS: ADMIT Internal Medicine; ATTEND Internal Medicine

== ENCOUNTER 2021-05-02 12:55 | Inpatient (IN) ==
[2021-05-02] MEDS ORDERED: Acetaminophen 325 MG TABLET PO PRN (17:57)
[2021-05-02] MEDS ORDERED: Ondansetron 4 MG/2 ML VIAL IVP PRN (17:57)
[2021-05-02] MEDS ORDERED: Naloxone 0.4 MG/ML INJ IVP PRN (17:57)
[2021-05-02 18:15] LABS: Basophils # 0.1 K/mcL (0.0-0.2); Basophils % 0.6 %; Eosinophils # 0.4 K/mcL (0.0-0.6); Eosinophils % 4.2 %; Hematocrit 30.9 % (37.5-50.1); Immature Granulocytes % 1.3 % (0-4); Lymphocytes # 1.8 K/mcL (0.6-4.6); Lymphocytes % 21.2 %; Mean Corpuscular HGB Conc 32.4 g/dL (31.6-35.5); Mean Corpuscular Volume 83.3 fL (83.0-100.0); Mean Platelet Volume 10.9 fL (9.4-12.4); Monocytes # 0.8 K/mcL (0.0-1.3); Monocytes % 9.1 %; Neutrophils # 5.3 K/mcL (1.6-8.9); Platelet Count 258 K/mcL (140-400); Red Blood Count 3.71 M/mcL (4.19-5.50); Red Cell Distribution Width 14.2 % (11.5-14.5); Segmented Neutrophils % 63.6 %; White Blood Count 8.4 K/mcL (4.3-11.1)
[2021-05-02 18:37] LABS: BUN/Creatinine Ratio 9 (6-26); Blood Urea Nitrogen 10 mg/dL (8-23); Calcium 8.8 mg/dL (8.6-10.3); Carbon Dioxide 26 mEq/L (23-29); Chloride 102 mEq/L (98-107); Glucose 198 mg/dL (70-105); Osmolality,Calculated 287 (280-300); Potassium 3.3 mEq/L (3.5-5.1); Sodium 136 mEq/L (136-145); eGFR For African Americans > 60 (> 60); eGFR For Non-African Americans > 60 (> 60)
[2021-05-02] MEDS ORDERED: polyethylene glycoL 3350 17 GM POWD.PACK PO PRN (19:09)
[2021-05-02] MEDS ORDERED: Lactulose Oral Soln 20 GM/30 ML UDC PO PRN (19:09)
[2021-05-02] MEDS ORDERED: Piperacillin/Tazobactam 4.5 GM VIAL IVP SCH (19:15)
[2021-05-02] MEDS: hydrALAZINE 25 MG TABLET PO SCH (20:55)
[2021-05-02] MEDS: Gabapentin 300 MG CAPSULE PO SCH (20:56)
[2021-05-02] MEDS: Piperacillin/Tazobactam 3.375 GM in 0.9 % Sodium Chloride Mini Bag 100 ML IVPB SCH (20:56)
[2021-05-02] MEDS: Lactobacillus 1 EACH CAP.SPRINK PO SCH (20:56)
[2021-05-02] MEDS: *HR* HYDROcodone/Acet 5/325 mg TABLET PO PRN (21:09)
[2021-05-03] MEDS: *HR* OxyCODONE Immed Rel 5 MG TABLET PO PRN ×3 (04:30→20:40)
[2021-05-03] MEDS: *HR* Heparin 5,000 UNIT/ML VIAL SQ SCH ×2 (04:30→18:55)
[2021-05-03] MEDS: Piperacillin/Tazobactam 3.375 GM in 0.9 % Sodium Chloride Mini Bag 100 ML IVPB SCH ×3 (04:31→20:56)
[2021-05-03] MEDS ORDERED: Dextrose Gel 15 GM/37.5 ML TUBE PO PRN ×2 (04:39)
[2021-05-03] MEDS ORDERED: D5% in Water 1,000 ML IVC PRN (04:39)
[2021-05-03] MEDS ORDERED: *HR* Dextrose 50 % in Water (Vial) 50 ML VIAL IVP PRN (04:39)
[2021-05-03] MEDS: Finasteride 5 MG TABLET PO SCH (07:55)
[2021-05-03] MEDS: Lactobacillus 1 EACH CAP.SPRINK PO SCH ×2 (07:55→20:54)
[2021-05-03] MEDS: hydrALAZINE 25 MG TABLET PO SCH ×3 (07:55→20:55)
[2021-05-03] MEDS: Cyanocobalamin (B-12) 1,000 MCG TABLET PO SCH (07:55)
[2021-05-03] MEDS: Cholecalciferol (D-3) 1,000 UNIT (25MCG) TABLET PO SCH (07:55)
[2021-05-03] MEDS: Isosorbide MONOnitrate (24 HR) 60 MG TAB.ER.24H PO SCH (07:55)
[2021-05-03] MEDS: Gabapentin 300 MG CAPSULE PO SCH ×2 (07:56→20:55)
[2021-05-03] MEDS: Insulin LISPRO 300 UNITS/3 ML VIAL SUBQ SCH ×3 (07:57→18:55)
[2021-05-03 08:13] LABS: Blood Urea Nitrogen 11 mg/dL (8-23); Calcium 8.6 mg/dL (8.6-10.3); Carbon Dioxide 23 mEq/L (23-29); Chloride 105 mEq/L (98-107); Glucose 183 mg/dL (70-105); Magnesium 1.6 mg/dL (1.6-2.6); Osmolality,Calculated 288 (280-300); Phosphorous 2.4 mg/dL (2.7-4.5); Potassium 3.1 mEq/L (3.5-5.1); Sodium 137 mEq/L (136-145)
[2021-05-03 08:24] LABS: Basophils # 0.1 K/mcL (0.0-0.2); Basophils % 0.6 %; Eosinophils # 0.4 K/mcL (0.0-0.6); Eosinophils % 4.8 %; Hematocrit 28.8 % (37.5-50.1); Hemoglobin 9.5 g/dL (12.9-16.9); Immature Granulocytes % 0.7 % (0-4); Lymphocytes # 1.6 K/mcL (0.6-4.6); Lymphocytes % 19.7 %; Mean Corpuscular Hemoglobin 27.1 pg (28.0-33.3); Mean Corpuscular Volume 82.1 fL (83.0-100.0); Mean Platelet Volume 11.2 fL (9.4-12.4); Monocytes # 0.7 K/mcL (0.0-1.3); Monocytes % 8.7 %; Neutrophils # 5.4 K/mcL (1.6-8.9); Platelet Count 235 K/mcL (140-400); Red Blood Count 3.51 M/mcL (4.19-5.50); Red Cell Distribution Width 14.4 % (11.5-14.5); Segmented Neutrophils % 65.5 %; White Blood Count 8.2 K/mcL (4.3-11.1)
[2021-05-03 08:30] LABS: INR 1.2; Prothrombin Time 13.7 Seconds (9.4-12.1)
[2021-05-03 08:55] LABS: BUN/Creatinine Ratio 11 (6-26); eGFR For African Americans > 60 (> 60); eGFR For Non-African Americans > 60 (> 60)
[2021-05-03] MEDS ORDERED: atenoloL 50 MG TABLET PO SCH (09:00)
[2021-05-03] MEDS: *HR* HYDROcodone/Acet 5/325 mg TABLET PO PRN (18:56)
[2021-05-03] MEDS: carvediloL 6.25 MG TABLET PO SCH (18:56)
[2021-05-03] MEDS: Aspirin 81 MG TAB.CHEW PO SCH (18:56)
[2021-05-03] MEDS: Insulin DETEMIR 100 UNIT/ML X5UNITS SUBQ SCH (20:56)
[2021-05-04] MEDS: Piperacillin/Tazobactam 3.375 GM in 0.9 % Sodium Chloride Mini Bag 100 ML IVPB SCH ×3 (05:33→20:35)
[2021-05-04] MEDS: *HR* Heparin 5,000 UNIT/ML VIAL SQ SCH ×2 (09:04→17:31)
[2021-05-04] MEDS: Aspirin 81 MG TAB.CHEW PO SCH (09:32)
[2021-05-04] MEDS: *HR* OxyCODONE Immed Rel 5 MG TABLET PO PRN ×2 (09:32→16:17)
[2021-05-04] MEDS: Cholecalciferol (D-3) 1,000 UNIT (25MCG) TABLET PO SCH (09:32)
[2021-05-04] MEDS: carvediloL 6.25 MG TABLET PO SCH ×2 (09:33→17:31)
[2021-05-04] MEDS: Cyanocobalamin (B-12) 1,000 MCG TABLET PO SCH (09:33)
[2021-05-04] MEDS: Isosorbide MONOnitrate (24 HR) 60 MG TAB.ER.24H PO SCH (09:33)
[2021-05-04] MEDS: Finasteride 5 MG TABLET PO SCH (09:33)
[2021-05-04] MEDS: Lactobacillus 1 EACH CAP.SPRINK PO SCH ×2 (09:34→20:36)
[2021-05-04] MEDS: Gabapentin 300 MG CAPSULE PO SCH ×2 (09:34→20:36)
[2021-05-04] MEDS: hydrALAZINE 25 MG TABLET PO SCH ×3 (09:34→20:36)
[2021-05-04] MEDS: Insulin LISPRO 300 UNITS/3 ML VIAL SUBQ SCH ×3 (09:39→17:31)
[2021-05-04] MEDS: Insulin DETEMIR 100 UNIT/ML X5UNITS SUBQ SCH ×2 (09:39→20:36)
[2021-05-04 09:43] LABS: Hematocrit 30.9 % (37.5-50.1); Hemoglobin 10.3 g/dL (12.9-16.9); Mean Corpuscular HGB Conc 33.3 g/dL (31.6-35.5); Mean Corpuscular Hemoglobin 27.8 pg (28.0-33.3); Mean Corpuscular Volume 83.3 fL (83.0-100.0); Mean Platelet Volume 11.3 fL (9.4-12.4); Platelet Count 226 K/mcL (140-400); Red Blood Count 3.71 M/mcL (4.19-5.50); Red Cell Distribution Width 14.2 % (11.5-14.5); White Blood Count 9.3 K/mcL (4.3-11.1)
[2021-05-04 09:58] LABS: BUN/Creatinine Ratio 10 (6-26); Blood Urea Nitrogen 11 mg/dL (8-23); Calcium 8.8 mg/dL (8.6-10.3); Carbon Dioxide 23 mEq/L (23-29); Chloride 106 mEq/L (98-107); Glucose 187 mg/dL (70-105); Magnesium 1.8 mg/dL (1.6-2.6); Osmolality,Calculated 290 (280-300); Phosphorous 2.3 mg/dL (2.7-4.5); Potassium 3.6 mEq/L (3.5-5.1); Sodium 138 mEq/L (136-145); eGFR For African Americans > 60 (> 60); eGFR For Non-African Americans > 60 (> 60)
[2021-05-04] MEDS: *HR* HYDROcodone/Acet 5/325 mg TABLET PO PRN (20:46)
[2021-05-04] MEDS: Melatonin 3 MG TABLET PO PRN (20:49)
[2021-05-05] MEDS: Piperacillin/Tazobactam 3.375 GM in 0.9 % Sodium Chloride Mini Bag 100 ML IVPB SCH ×3 (03:20→20:02)
[2021-05-05] MEDS: *HR* Heparin 5,000 UNIT/ML VIAL SQ SCH ×2 (05:24→17:06)
[2021-05-05] MEDS: *HR* OxyCODONE Immed Rel 5 MG TABLET PO PRN ×2 (05:55→14:49)
[2021-05-05 06:31] LABS: Hematocrit 28.6 % (37.5-50.1); Hemoglobin 9.2 g/dL (12.9-16.9); Mean Corpuscular HGB Conc 32.2 g/dL (31.6-35.5); Mean Corpuscular Hemoglobin 26.9 pg (28.0-33.3); Mean Corpuscular Volume 83.6 fL (83.0-100.0); Platelet Count 202 K/mcL (140-400); Red Blood Count 3.42 M/mcL (4.19-5.50); Red Cell Distribution Width 14.4 % (11.5-14.5); White Blood Count 6.8 K/mcL (4.3-11.1)
[2021-05-05 06:52] LABS: BUN/Creatinine Ratio 9 (6-26); Blood Urea Nitrogen 10 mg/dL (8-23); Calcium 8.7 mg/dL (8.6-10.3); Carbon Dioxide 24 mEq/L (23-29); Chloride 107 mEq/L (98-107); Glucose 136 mg/dL (70-105); Magnesium 1.8 mg/dL (1.6-2.6); Osmolality,Calculated 289 (280-300); Phosphorous 2.5 mg/dL (2.7-4.5); Potassium 3.5 mEq/L (3.5-5.1); Sodium 139 mEq/L (136-145); eGFR For African Americans > 60 (> 60); eGFR For Non-African Americans > 60 (> 60)
[2021-05-05] MEDS: Cholecalciferol (D-3) 1,000 UNIT (25MCG) TABLET PO SCH (07:52)
[2021-05-05] MEDS: carvediloL 6.25 MG TABLET PO SCH ×2 (07:52→17:05)
[2021-05-05] MEDS: Aspirin 81 MG TAB.CHEW PO SCH (07:52)
[2021-05-05] MEDS: Finasteride 5 MG TABLET PO SCH (07:52)
[2021-05-05] MEDS: Isosorbide MONOnitrate (24 HR) 60 MG TAB.ER.24H PO SCH (07:52)
[2021-05-05] MEDS: Cyanocobalamin (B-12) 1,000 MCG TABLET PO SCH (07:52)
[2021-05-05] MEDS: Gabapentin 300 MG CAPSULE PO SCH (07:53)
[2021-05-05] MEDS: hydrALAZINE 25 MG TABLET PO SCH ×3 (07:53→20:04)
[2021-05-05] MEDS: Lactobacillus 1 EACH CAP.SPRINK PO SCH ×2 (07:53→20:05)
[2021-05-05] MEDS: Insulin DETEMIR 100 UNIT/ML X5UNITS SUBQ SCH ×2 (07:54→20:05)
[2021-05-05] MEDS: Insulin LISPRO 300 UNITS/3 ML VIAL SUBQ SCH ×3 (07:55→17:06)
[2021-05-05] MEDS: NIFEdipine XL (24 HR) 60 MG TAB.ER.24 PO SCH (08:53)
[2021-05-05] MEDS: *HR* HYDROcodone/Acet 5/325 mg TABLET PO PRN ×2 (09:23→20:04)
[2021-05-05] MEDS: Gabapentin 400 MG CAPSULE PO SCH ×2 (14:53→20:05)
[2021-05-05] MEDS: Sennosides/Docusate Sodium TABLET PO SCH (20:05)
[2021-05-05] MEDS: Melatonin 3 MG TABLET PO PRN (22:19)
[2021-05-06 01:52] LABS: Hematocrit 26.6 % (37.5-50.1); Hemoglobin 8.7 g/dL (12.9-16.9); Mean Corpuscular HGB Conc 32.7 g/dL (31.6-35.5); Mean Corpuscular Hemoglobin 27.4 pg (28.0-33.3); Mean Corpuscular Volume 83.9 fL (83.0-100.0); Mean Platelet Volume 11.3 fL (9.4-12.4); Platelet Count 202 K/mcL (140-400); Red Blood Count 3.17 M/mcL (4.19-5.50); Red Cell Distribution Width 14.6 % (11.5-14.5); White Blood Count 6.6 K/mcL (4.3-11.1)
[2021-05-06 02:04] LABS: BUN/Creatinine Ratio 10 (6-26); Blood Urea Nitrogen 11 mg/dL (8-23); Calcium 8.3 mg/dL (8.6-10.3); Carbon Dioxide 21 mEq/L (23-29); Chloride 109 mEq/L (98-107); Glucose 205 mg/dL (70-105); Osmolality,Calculated 293 (280-300); Potassium 3.6 mEq/L (3.5-5.1); Sodium 139 mEq/L (136-145); eGFR For African Americans > 60 (> 60); eGFR For Non-African Americans > 60 (> 60)
[2021-05-06] MEDS: *HR* Heparin 5,000 UNIT/ML VIAL SQ SCH (05:01)
[2021-05-06] MEDS: Piperacillin/Tazobactam 3.375 GM in 0.9 % Sodium Chloride Mini Bag 100 ML IVPB SCH ×2 (05:01→22:13)
[2021-05-06] MEDS: Aspirin 81 MG TAB.CHEW PO SCH (07:22)
[2021-05-06] MEDS: Lactobacillus 1 EACH CAP.SPRINK PO SCH ×2 (07:24→22:14)
[2021-05-06] MEDS: Finasteride 5 MG TABLET PO SCH (07:24)
[2021-05-06] MEDS: hydrALAZINE 25 MG TABLET PO SCH ×3 (07:24→22:13)
[2021-05-06] MEDS: NIFEdipine XL (24 HR) 60 MG TAB.ER.24 PO SCH (07:25)
[2021-05-06] MEDS: Cholecalciferol (D-3) 1,000 UNIT (25MCG) TABLET PO SCH (07:25)
[2021-05-06] MEDS: Gabapentin 400 MG CAPSULE PO SCH ×3 (07:25→22:13)
[2021-05-06] MEDS: Cyanocobalamin (B-12) 1,000 MCG TABLET PO SCH (07:25)
[2021-05-06] MEDS: Isosorbide MONOnitrate (24 HR) 60 MG TAB.ER.24H PO SCH (07:25)
[2021-05-06] MEDS: carvediloL 6.25 MG TABLET PO SCH ×2 (07:25→17:13)
[2021-05-06] MEDS: Sennosides/Docusate Sodium TABLET PO SCH ×2 (07:25→22:14)
[2021-05-06] MEDS: Insulin LISPRO 300 UNITS/3 ML VIAL SUBQ SCH ×3 (07:26→17:14)
[2021-05-06] MEDS: Insulin DETEMIR 100 UNIT/ML X5UNITS SUBQ SCH ×2 (07:31→22:14)
[2021-05-06] MEDS: *HR* HYDROcodone/Acet 5/325 mg TABLET PO PRN (08:17)
[2021-05-06] MEDS: Calcium Gluconate 1gm/50mL 1 GM/50 ML BAG IVPB SCH ×2 (08:19→09:45)
[2021-05-06] MEDS ORDERED: Ondansetron 4 MG/2 ML VIAL ONE (10:28)
[2021-05-06] MEDS ORDERED: Lidocaine -MPF 2% 2 ML VIAL ONE (10:28)
[2021-05-06] MEDS ORDERED: *HR* Midazolam HCl 2 MG/2 ML VIAL ONE (10:28)
[2021-05-06] MEDS ORDERED: *HR* FentaNYL (PF) 100 MCG/2 ML VIAL ONE ×3 (10:28→12:06)
[2021-05-06] MEDS ORDERED: *HR* Propofol 200 MG/20 ML VIAL IVP ONE (10:28)
[2021-05-06] MEDS ORDERED: *HR* Succinylcholine 200 MG/10 ML VIAL IVP ONE (10:28)
[2021-05-06] MEDS ORDERED: Lidocaine HCL 4 ML Topical Solution (Laryng-O-Jet Kit Sterile Pak) TP ONE (10:28)
[2021-05-06] MEDS ORDERED: Vancomycin 1,000 MG VIAL ONE (10:33)
[2021-05-06] MEDS ORDERED: Vancomycin 1,000 MG, Sodium Chloride IRRigation 1,000 ML IR ONE (11:00)
[2021-05-06] MEDS ORDERED: *HR* Rocuronium Bromide 50 MG/5 ML VIAL ONE (11:43)
[2021-05-06] MEDS ORDERED: Sugammadex Sodium 200 MG/2 ML VIAL IV ONE (12:12)
[2021-05-06] MEDS: *HR* HYDROmorphone PF 0.5 MG/0.5 ML SYRINGE IVP PRN ×4 (12:59→13:15)
[2021-05-06] MEDS ORDERED: polyethylene glycoL 3350 17 GM POWD.PACK PO PRN (13:25)
[2021-05-06] MEDS ORDERED: Lactulose Oral Soln 20 GM/30 ML UDC PO PRN (13:25)
[2021-05-06] MEDS ORDERED: D5% in Water 1,000 ML IVC PRN (13:25)
[2021-05-06] MEDS ORDERED: Melatonin 3 MG TABLET PO PRN (13:25)
[2021-05-06] MEDS ORDERED: *HR* OxyCODONE Immed Rel 5 MG TABLET PO PRN ×2 (13:25)
[2021-05-06] MEDS ORDERED: Ondansetron 4 MG/2 ML VIAL IVP PRN (13:25)
[2021-05-06] MEDS ORDERED: Dextrose Gel 15 GM/37.5 ML TUBE PO PRN ×2 (13:25)
[2021-05-06] MEDS ORDERED: *HR* OxyCODONE/APAP 5/325 TABLET PO PRN ×2 (13:25)
[2021-05-06] MEDS ORDERED: Naloxone 0.4 MG/ML INJ IVP PRN ×2 (13:25)
[2021-05-06] MEDS ORDERED: *HR* Dextrose 50 % in Water (Vial) 50 ML VIAL IVP PRN (13:25)
[2021-05-06] MEDS: Ketorolac 15 MG/ML VIAL IVP SCH ×2 (18:21→23:26)
[2021-05-06] MEDS: *HR* OxyCODONE Immed Rel 5 MG TABLET PO PRN (23:27)
[2021-05-07] MEDS: Piperacillin/Tazobactam 3.375 GM in 0.9 % Sodium Chloride Mini Bag 100 ML IVPB SCH ×3 (06:22→20:58)
[2021-05-07] MEDS: Ketorolac 15 MG/ML VIAL IVP SCH (06:23)
[2021-05-07] MEDS: *HR* Heparin 5,000 UNIT/ML VIAL SQ SCH ×2 (06:23→16:45)
[2021-05-07 06:25] LABS: Calcium 8.2 mg/dL (8.6-10.3); Magnesium 1.9 mg/dL (1.6-2.6); Phosphorous 3.8 mg/dL (2.7-4.5); Potassium 4.6 mEq/L (3.5-5.1)
[2021-05-07 07:45] LABS: Hematocrit 23.7 % (37.5-50.1); Hemoglobin 7.4 g/dL (12.9-16.9); Mean Corpuscular HGB Conc 31.2 g/dL (31.6-35.5); Mean Corpuscular Volume 86.5 fL (83.0-100.0); Mean Platelet Volume 11.4 fL (9.4-12.4); Platelet Count 214 K/mcL (140-400); Red Blood Count 2.74 M/mcL (4.19-5.50); Red Cell Distribution Width 15.1 % (11.5-14.5); White Blood Count 8.9 K/mcL (4.3-11.1)
[2021-05-07] MEDS: Insulin DETEMIR 100 UNIT/ML X5UNITS SUBQ SCH ×2 (08:03→20:59)
[2021-05-07] MEDS: Isosorbide MONOnitrate (24 HR) 60 MG TAB.ER.24H PO SCH (08:04)
[2021-05-07] MEDS: Lactobacillus 1 EACH CAP.SPRINK PO SCH ×2 (08:04→20:58)
[2021-05-07] MEDS: Sennosides/Docusate Sodium TABLET PO SCH ×2 (08:04→20:58)
[2021-05-07] MEDS: Gabapentin 400 MG CAPSULE PO SCH ×3 (08:05→20:58)
[2021-05-07] MEDS: NIFEdipine XL (24 HR) 60 MG TAB.ER.24 PO SCH (08:05)
[2021-05-07] MEDS: Cyanocobalamin (B-12) 1,000 MCG TABLET PO SCH (08:06)
[2021-05-07] MEDS: carvediloL 6.25 MG TABLET PO SCH ×2 (08:06→16:44)
[2021-05-07] MEDS: Finasteride 5 MG TABLET PO SCH (08:06)
[2021-05-07] MEDS: Aspirin 81 MG TAB.CHEW PO SCH (08:06)
[2021-05-07] MEDS: hydrALAZINE 25 MG TABLET PO SCH ×3 (08:06→21:00)
[2021-05-07] MEDS: Cholecalciferol (D-3) 1,000 UNIT (25MCG) TABLET PO SCH (08:06)
[2021-05-07] MEDS: Insulin LISPRO 300 UNITS/3 ML VIAL SUBQ SCH ×3 (08:15→16:45)
[2021-05-07] MEDS: *HR* OxyCODONE Immed Rel 5 MG TABLET PO PRN (09:55)
[2021-05-08] MEDS ORDERED: 0.9 % Sodium Chloride 250 ML ONE (01:09)
[2021-05-08] MEDS: Piperacillin/Tazobactam 3.375 GM in 0.9 % Sodium Chloride Mini Bag 100 ML IVPB SCH ×2 (04:13→11:10)
[2021-05-08 05:28] LABS: Hematocrit 23.5 % (37.5-50.1); Hemoglobin 7.6 g/dL (12.9-16.9); Mean Corpuscular HGB Conc 32.3 g/dL (31.6-35.5); Mean Corpuscular Hemoglobin 27.5 pg (28.0-33.3); Mean Corpuscular Volume 85.1 fL (83.0-100.0); Platelet Count 170 K/mcL (140-400); Red Blood Count 2.76 M/mcL (4.19-5.50); Red Cell Distribution Width 14.8 % (11.5-14.5); White Blood Count 5.9 K/mcL (4.3-11.1)
[2021-05-08 05:55] LABS: Calcium 7.9 mg/dL (8.6-10.3); Magnesium 1.8 mg/dL (1.6-2.6); Phosphorous 2.7 mg/dL (2.7-4.5); Potassium 3.9 mEq/L (3.5-5.1)
[2021-05-08] MEDS: *HR* Heparin 5,000 UNIT/ML VIAL SQ SCH (05:55)
[2021-05-08 06:44] VITALS: PULSE 87
[2021-05-08] MEDS: Aspirin 81 MG TAB.CHEW PO SCH (08:48)
[2021-05-08] MEDS: Isosorbide MONOnitrate (24 HR) 60 MG TAB.ER.24H PO SCH (08:49)
[2021-05-08] MEDS: Cholecalciferol (D-3) 1,000 UNIT (25MCG) TABLET PO SCH (08:49)
[2021-05-08] MEDS: carvediloL 6.25 MG TABLET PO SCH (08:50)
[2021-05-08] MEDS: Finasteride 5 MG TABLET PO SCH (08:50)
[2021-05-08] MEDS: Lactobacillus 1 EACH CAP.SPRINK PO SCH (08:50)
[2021-05-08] MEDS: hydrALAZINE 25 MG TABLET PO SCH (08:51)
[2021-05-08] MEDS: Cyanocobalamin (B-12) 1,000 MCG TABLET PO SCH (08:51)
[2021-05-08] MEDS: Gabapentin 400 MG CAPSULE PO SCH (08:51)
[2021-05-08] MEDS: NIFEdipine XL (24 HR) 60 MG TAB.ER.24 PO SCH (08:52)
[2021-05-08] MEDS: Sennosides/Docusate Sodium TABLET PO SCH (08:52)
[2021-05-08] MEDS: Insulin LISPRO 300 UNITS/3 ML VIAL SUBQ SCH ×2 (08:52→12:34)
[2021-05-08] MEDS: Insulin DETEMIR 100 UNIT/ML X5UNITS SUBQ SCH (09:03)
[2021-05-08 09:12] VITALS: BP 156/70; TEMP 98.5; O2SAT 93
== END 2021-05-08 13:42 | disposition home health service (06) | DRG 240 ==
LOC: EMEROOARM 12:55 → 3NENU 12:55 → SUATTDRO 17:54 → 3NENU 19:46
PROVIDERS: ADMIT Internal Medicine; ATTEND Hospitalist